=== PATIENT | female | born 1985 | race Caucasian/White ===

== ENCOUNTER 2020-12-29 23:47 | Inpatient (IN) | payer MEDICAID ==
[~2020-12-29] VITALS: Ht 157.5 cm; Wt 72.6 kg
[2020-12-30 01:18] LABS: Mean Corpuscular Hgb Conc. 32.5 g/dL (32.0-36.0); Nucleated Red Blood Cells % 0.1 %
[2020-12-30 01:20] LABS: Basophils # (auto) 0.1 10 ^3/uL (0-0.2); Basophils % (auto) 0.6 % (0.0-2.0); Eosinophils # (auto) 0.3 10 ^3/uL (0-0.8); Eosinophils % (auto) 2.6 % (0.0-7.0); Hematocrit 42.8 % (36.0-46.0); Hemoglobin 13.9 g/dL (12.2-16.2); Lymphocytes # (auto) 3.2 10 ^3/uL (0.4-5.4); Lymphocytes % (auto) 23.3 % (10.0-50.0); Mean Corpuscular Hemoglobin 26.7 pg (28.0-32.0); Mean Corpuscular Volume 82.2 fL (80.0-100.0); Monocytes # (auto) 1.3 10 ^3/uL (0-1.3); Monocytes % (auto) 9.4 % (0.0-12.0); Neutrophils # (auto) 8.7 10 ^3/uL (1.6-8.6); Neutrophils % (auto) 64.1 % (37.0-80.0); Platelet Count (auto) 277 10^3/uL (140-450); Red Blood Cells 5.21 10^6/uL (4.0-5.20); Red Cell Distribution Width 15.2 % (11.8-14.3); White Blood Cell 13.6 10^3/uL (4.4-10.8)
[2020-12-30] MEDS ORDERED: FUROSEMIDE 40 MG/4 ML VIAL IV ONE (01:30)
[2020-12-30 01:34] LABS: Albumin 3.5 g/dL (3.4-5.0); Calcium 8.5 mg/dL (8.5-10.1); Magnesium 2.3 mg/dL (1.6-2.6); Potassium 3.8 mmol/L (3.5-5.1)
[2020-12-30 01:40] LABS: Bilirubin, Total 0.7 mg/dL (0.2-1.0); Total Protein 6.6 g/dL (6.4-8.2)
[2020-12-30] MEDS ORDERED: cloNIDine HCL 0.1 MG TAB PO ONE (02:00)
[2020-12-30] MEDS ORDERED: ASPirin 325 MG TAB PO ONE (02:00)
[2020-12-30] MEDS ORDERED: ENOXAPARIN SOD 100 MG/1 ML SYRINGE SC ONE (02:15)
[2020-12-30 02:25] LABS: INR 1.13 (0.9-1.15)
[2020-12-30] MEDS ORDERED: FUROSEMIDE 20 MG TAB PO ONE (03:00)
[2020-12-30] MEDS ORDERED: MORPHINE SULFATE 4 MG/ML SYR/VIAL IV PRN (03:00)
[2020-12-30] MEDS ORDERED: ONDANSETRON HCL 4 MG/2 ML VIAL IV PRN (03:00)
[2020-12-30] MEDS ORDERED: hydrALAZINE HCL 25 MG TAB PO PRN (03:00)
[2020-12-30] MEDS ORDERED: NITROGLYCERIN 0.4 MG SL TAB SL PRN (03:00)
[2020-12-30] MEDS ORDERED: DOCUSATE SOD 100 MG CAP PO PRN (03:00)
[2020-12-30] MEDS ORDERED: MORPHINE SULF INJ 2 MG/ML SYRINGE 1ML IV PRN (03:00)
[2020-12-30] MEDS ORDERED: ACETAMINOPHEN 325 MG TAB PO PRN (03:00)
[2020-12-30] MEDS ORDERED: HYDROcodone-ACET 5/325MG TAB PO PRN (03:00)
[2020-12-30 03:35] LABS: Urine Bacteria FEW /hpf (None Seen); Urine Blood 1+ /uL (Negative); Urine Mucus FEW (None Seen); Urine Specific Gravity 1.024 (1.001-1.035); Urine WBC 7 /hpf (0 - 5)
[2020-12-30] MEDS ORDERED: SODIUM CHLOR 0.9% PF (SALINE LOCK) 10ML VIAL/SYR IV SCH (06:00)
[2020-12-30 08:38] LABS: Basophils # (auto) 0.1 10 ^3/uL (0-0.2); Eosinophils # (auto) 0.4 10 ^3/uL (0-0.8); Eosinophils % (auto) 2.9 % (0.0-7.0); Hematocrit 42.7 % (36.0-46.0); Lymphocytes # (auto) 3.1 10 ^3/uL (0.4-5.4); Lymphocytes % (auto) 24.7 % (10.0-50.0); Mean Corpuscular Hemoglobin 27.2 pg (28.0-32.0); Mean Corpuscular Hgb Conc. 32.9 g/dL (32.0-36.0); Mean Corpuscular Volume 82.8 fL (80.0-100.0); Monocytes % (auto) 8.4 % (0.0-12.0); Neutrophils # (auto) 7.8 10 ^3/uL (1.6-8.6); Nucleated Red Blood Cells % 0.2 %; Platelet Count (auto) 256 10^3/uL (140-450); Red Blood Cells 5.16 10^6/uL (4.0-5.20); Red Cell Distribution Width 15.4 % (11.8-14.3); White Blood Cell 12.4 10^3/uL (4.4-10.8)
[2020-12-30 09:00] LABS: Albumin 3.3 g/dL (3.4-5.0); Calcium 8.2 mg/dL (8.5-10.1); Potassium 3.9 mmol/L (3.5-5.1)
[2020-12-30 09:02] LABS: BUN/Creatinine Ratio 19.3; Bilirubin, Total 0.8 mg/dL (0.2-1.0); Total Protein 6.8 g/dL (6.4-8.2)
[2020-12-30 09:08] LABS: Cholesterol 160 mg/dL (< 200)
[2020-12-30 09:12] LABS: HDL Cholesterol 26 mg/dL (40-59); LDL Cholesterol 116 mg/dL (< 100); Triglycerides 188 mg/dL (< 150)
[2020-12-30] MEDS ORDERED: MULTIPLE VITAMIN TAB PO SCH (10:00)
[2020-12-30] MEDS ORDERED: FAMOTIDINE 20 MG TAB PO SCH (10:00)
[2020-12-30] MEDS ORDERED: FUROSEMIDE 20 MG TAB PO SCH (10:00)
[2020-12-30] MEDS ORDERED: ZINC SULFATE 220mg CAP or TAB PO SCH (10:00)
[2020-12-30] MEDS ORDERED: amLODIPine BESYLATE 5 MG TAB PO SCH (10:00)
[2020-12-30] MEDS ORDERED: ASPirin 81 mg TAB PO SCH (10:00)
[2020-12-30] MEDS ORDERED: ENOXAPARIN SOD 40 MG/0.4 ML SYRINGE SC SCH (10:00)
[2020-12-30] MEDS ORDERED: ASCORBIC ACID 500 MG TAB PO SCH (10:00)
[2020-12-30 10:17] VITALS: BP 144/107
[2020-12-30] MEDS ORDERED: ATORVASTATIN 20 MG TAB PO SCH (22:00)
== END 2020-12-30 10:08 | disposition left against medical advice (07) | DRG 190 ==
LOC: ER 23:50 → TELE 23:51
PROVIDERS: ADMIT Nurse Practitioner Family; ATTEND Internal Medicine
DX: I21.4 Non-ST elevation (NSTEMI) myocardial infarction (principal); R10.13 Epigastric pain; F11.90 Opioid use, unspecified, uncomplicated; F12.90 Cannabis use, unspecified, uncomplicated; F14.90 Cocaine use, unspecified, uncomplicated; F17.210 Nicotine dependence, cigarettes, uncomplicated; I11.0 Hypertensive heart disease with heart failure; I50.9 Heart failure, unspecified; J45.909 Unspecified asthma, uncomplicated; K59.00 Constipation, unspecified; Z91.14 Patient's other noncompliance with medication regimen; Z20.822 Contact with and (suspected) exposure to COVID-19; Z53.29 Procedure and treatment not carried out because of patient's decision for other reasons
CPT/HCPCS: 36415; 71045; 80053; 80061; 81001; 83605; 83690; 83735; 83880; 84484; 85025; 85610; 87426; 93005; 93306; 96372; 96374; G0378; J2405

== ENCOUNTER 2020-12-30 12:06 | Emergency (ER) | payer MEDICAID ==
[~2020-12-30] VITALS: Ht 157.5 cm; Wt 72.6 kg
[2020-12-30 12:10] VITALS: BP 146/109
[2020-12-30 14:18] LABS: Albumin 3.3 g/dL (3.4-5.0); Calcium 8.2 mg/dL (8.5-10.1); Magnesium 2.3 mg/dL (1.6-2.6); Potassium 4.4 mmol/L (3.5-5.1)
[2020-12-30 14:22] LABS: Bilirubin, Total 0.8 mg/dL (0.2-1.0); Total Protein 6.9 g/dL (6.4-8.2)
[2020-12-30 14:24] LABS: BUN/Creatinine Ratio 20.2
[2020-12-30 14:41] LABS: Thyroid Stimulating Hormone 3.26 uIU/mL (0.358-3.74)
[2020-12-30] MEDS ORDERED: ASPirin-EC 81 mg tab PO ONE (15:45)
== END 2020-12-30 18:27 | disposition home or self-care (01) ==
LOC: ER 12:06
DX: I21.A1 Myocardial infarction type 2 (principal); I21.4 Non-ST elevation (NSTEMI) myocardial infarction; I11.0 Hypertensive heart disease with heart failure; I50.43 Acute on chronic combined systolic (congestive) and diastolic (congestive) heart failure; J45.909 Unspecified asthma, uncomplicated; F17.210 Nicotine dependence, cigarettes, uncomplicated; F12.10 Cannabis abuse, uncomplicated; F15.10 Other stimulant abuse, uncomplicated; F11.10 Opioid abuse, uncomplicated; F14.10 Cocaine abuse, uncomplicated
CPT/HCPCS: 36415; 80053; 83735; 84443; 84484; 84702; 93005

== ENCOUNTER 2021-12-09 03:34 | Emergency (ER) | payer MEDICAID ==
[~2021-12-09] VITALS: Ht 167.6 cm; Wt 72.6 kg
[2021-12-09 03:49] VITALS: BP 152/115
== END 2021-12-09 06:28 | disposition left against medical advice (07) ==
LOC: EDBD 03:34 → ER 03:34
DX: R10.84 Generalized abdominal pain (principal); R11.2 Nausea with vomiting, unspecified; Z53.21 Procedure and treatment not carried out due to patient leaving prior to being seen by health care provider

== ENCOUNTER 2024-11-10 01:56 | Inpatient (IN) | payer MEDICAID ==
[~2024-11-10] VITALS: Ht 160 cm; Wt 89.9 kg
--- NOTE | 2024-11-10 02:37 | ED.PDOC ---
History of Present Illness HPI Comments 39-year-old female presents with a chief complaint of bilateral flank pain. Patient states that she has been off her Lasix because she "ran out 6 months ago". Patient is a poor historian. Patient denies seeing a regular doctor. Patient reports that the "swelling is causing my sides to hurt". Per [facility] medical record patient uses methamphetamines, cocaine, heroin, and marijuana. No reports of CHF in past medical chart. No other symptoms or modifying factors present at this time. Time Seen by MD: 02:25 Primary Care Provider: DR RFEEMAN Reviewed Notes: Medications, Allergies Allergies: Coded Allergies: NO KNOWN ALLERGIES (Unverified , 12/30/20) Information Source: Patient Mode of Arrival: Wheelchair Severity: Moderate Timing: Days Duration: Since onset Prehospital treatment: None Past Medical History PAST MEDICAL HISTORY: Asthma, HTN Surgical History: Denies all surgeries BATCHMAKER History: No Pertinent BATCHMAKER History Family History Family History: Unknown Social History Smoker: Cigarettes Alcohol: Occasionally Drugs: Cocaine, Heroin, Marijuana, Methamphetamine Constitutional: denies: chills, diaphoresis, fatigue, fever, malaise, sweats, weakness, others EENTM: denies: blurred vision, double vision, ear bleeding, ear discharge, ear drainage, ear pain, ear ringing, eye pain, eye redness, hearing loss, mouth pain, mouth swelling, nasal discharge, nose bleeding, nose congestion, nose pain, photophobia, tearing, throat pain, throat swelling, voice changes, others Respiratory: denies: cough, hemoptysis, orthopnea, SOB at rest, shortness of breath, SOB with excertion, stridor, wheezing, others Cardiovascular: denies: chest pain, dizzy spells, diaphoresis, Dyspnea on exertion, edema, irregular heart beat, left arm pain, lightheadedness, palpitations, PND, syncope, others Gastrointestinal: denies: abdomen distended, abdominal pain, blood streaked bowels, constipated, diarrhea, dysphagia, difficulty swallowing, hematemesis, melena, nausea, poor appetite, poor fluid intake, rectal bleeding, rectal pain, vomiting, others Genitourinary: reports: flank pain; denies: abnormal vagina bleeding, burning, dyspareunia, dysuria, frequency, hematuria, incontinence, pain, , vagina discharge, urgency, others Neurological: denies: dizziness, fainting, headache, left sided numbness, left sided weakness, numbness, paresthesia, pre-existing deficit, right sided numbness, right sided weakness, seizure, speech problems, tingling, tremors, weakness, others Musculoskeletal: denies: back pain, gout, joint pain, joint swelling, muscle pain, muscle stiffness, neck pain, others Integumetry: denies: bruises, change in color, change in hair/nails, dryness, laceration, lesions, lumps, rash, wounds, others Allergic/Immunocompromised: denies: Difficulty Healing, Frequent Infections, Hives, Itching, others Hematologic/Lymphatic: denies: anemia, blood clots, easy bleeding, easy bruising, swollen glands, others Endocrine: denies: excessive hunger, excessive sweating, excessive thirst, excessive urination, flushing, intolerance to cold, intolerance to heat, unexplained weight gain, unexplained weight loss, others Psychiatric: denies: anxiety, bipolar disorder, depression, hopeless, panic disorder, schizophrenia, sleepless, suicidal, others All Other Systems: Reviewed and Negative Physical Exam General Appearance: No Apparent Distress, Normal HEENT: Normal ENT Inspection, Pharynx Normal, TMs Normal Neck: Full Range of Motion, Non-Tender, Normal, Normal Inspection Respiratory: Chest Non-Tender, Lungs Clear, No Accessory Muscle Use, No Respiratory Distress, Normal Breath Sounds Cardiovascular: No Edema, No JVD, No Murmur, No Gallop, Normal Peripheral Pulses, Regular Rate/Rhythm Breast Exam: Deferred Gastrointestinal: No Organomegaly, Non Tender, No Pulsatile Mass, Normal Bowel Sounds, Soft Genitalia: Deferred Pelvic: Deferred Rectal: Deferred Extremities: No calf tenderness, Normal capillary refill, Normal inspection, Normal range of motion, Non-tender, Swelling (BILATERAL LOWER EXTREMITIES) Musculoskeletal : Apperance: Normal Neurologic: Alert, tinner automatic II-XII nml as Tested, No Motor Deficits, Normal Affect, Normal Mood, No Sensory Deficits Cerebellar Function: Normal Reflexes: Normal Skin: Dry, Normal Color, Warm Lymphatic: No Adenopathy Was a procedure done? Was a procedure done?: No Differential Dx Considerations may include: chf, acs, pneumonia, X-Ray, Labs, Meds, VS Vital Signs Date Time Temp Pulse Resp B/P (MAP) Pulse Ox O2 Delivery O2 Flow Rate FiO2 11/10/24 02:28 99.1 106 20 172/117 (135) 97 Lab Test 11/10/24 03:08 Range/Units White Blood Count 14.9 H 4.4-10.8 10^3/uL Red Blood Count 5.35 H 4.0-5.20 10^6/uL Hemoglobin 14.9 12.2-16.2 g/dL Hematocrit 45.9 36.0-46.0 % Mean Corpuscular Volume 85.9 80.0-100.0 fL Mean Corpuscular Hemoglobin 27.8 L 28.0-32.0 pg Mean Corpuscular Hemoglobin Concent 32.4 32.0-36.0 g/dL Red Cell Distribution Width 16.6 H 11.8-14.3 % Platelet Count 241 140-450 10^3/uL Mean Platelet Volume 10.1 6.9-10.8 fL Neutrophils (%) (Auto) 71.4 37.0-80.0 % Lymphocytes (%) (Auto) 18.0 10.0-50.0 % Monocytes (%) (Auto) 7.3 0.0-12.0 % Eosinophils (%) (Auto) 2.3 0.0-7.0 % Basophils (%) (Auto) 1.0 0.0-2.0 % Neutrophils # (Auto) 10.6 H 1.6-8.6 10 ^3/uL Lymphocytes # (Auto) 2.7 0.4-5.4 10 ^3/uL Monocytes # (Auto) 1.1 0-1.3 10 ^3/uL Eosinophils # (Auto) 0.3 0-0.8 10 ^3/uL Basophils # (Auto) 0.1 0-0.2 10 ^3/uL Nucleated Red Blood Cells 0.3 % Sodium Level 137 136-145 mmol/L Potassium Level 4.1 3.5-5.1 mmol/L Chloride Level 102 98-107 mmol/L Carbon Dioxide Level 25 20-31 mmol/L Anion Gap 10 5-15 Blood Urea Nitrogen 13 9-23 mg/dL Creatinine 0.82 0.550-1.02 mg/dL Glomerular Filtration Rate Calc 93 >90 mL/min BUN/Creatinine Ratio 15.9 10.0-20.0 Serum Glucose 182 H 74-106 mg/dL Calcium Level 10.0 8.7-10.4 mg/dL Troponin I High Sensitivity 84 *H </=34 ng/L B-Type Natriuretic Peptide 809.53 0-100 pg/mL Time of 1ST Reevaluation: 02:55 Reevaluation 1ST: Unchanged Patient Education/Counseling: Diagnosis, Treatment, Prognosis Family Education/Counseling: No Family Present Departure 1 Departure Time of Disposition: 04:02 (Patient likely with acute on chronic chf exacerbation in the setting of medication noncompliance. ) Impression: Primary Impression: Systolic and diastolic CHF, acute on chronic Additional Impressions: Noncompliance with medication regimen Swelling of lower extremity Disposition: ADMITTED INPATIENT Admit to: Med Surg Condition: Serious Critical Care Note Critical Care Time?: Yes Critical care comment: Acute shortness of breath Authorized and Performed by: Hayden Johnson MD Total critical care time: Approximately 33 minutes Due to a high probability of clinically significant, life threatening deterioration, the patient required my highest level of preparedness to intervene emergently and I personally spent this critical care time directly and personally managing the patient. This critical care time included obtaining a history; examining the patient; pulse oximetry; ordering and review of studies; arranging urgent treatment with development of a management plan; evaluation of patient's response to treatment; frequent reassessment; and, discussions with other providers. This critical care time was performed to assess and manage the high probability of imminent, life-threatening deterioration that could result in multi-organ failure. It was exclusive of separately billable procedures and treating other patients and teaching time. Please see my other sections and the rest of the note for further information on patient assessment and treatment. Stability Stability form required: No I personally scribed for HAYDEN JOHNSON MD ([email or web address]) on 11/10/24 at 02:37. Electronically submitted by Dustin Moulton ([email or web address]). HAYDEN JOHNSON MD Nov 10, 2024 02:37
[2024-11-10 03:21] LABS: Basophils # (auto) 0.1 10 ^3/uL (0-0.2); Eosinophils # (auto) 0.3 10 ^3/uL (0-0.8); Eosinophils % (auto) 2.3 % (0.0-7.0); Hematocrit 45.9 % (36.0-46.0); Hemoglobin 14.9 g/dL (12.2-16.2); Lymphocytes # (auto) 2.7 10 ^3/uL (0.4-5.4); Mean Corpuscular Hemoglobin 27.8 pg (28.0-32.0); Mean Corpuscular Hgb Conc. 32.4 g/dL (32.0-36.0); Mean Corpuscular Volume 85.9 fL (80.0-100.0); Monocytes # (auto) 1.1 10 ^3/uL (0-1.3); Monocytes % (auto) 7.3 % (0.0-12.0); Neutrophils # (auto) 10.6 10 ^3/uL (1.6-8.6); Neutrophils % (auto) 71.4 % (37.0-80.0); Nucleated Red Blood Cells % 0.3 %; Platelet Count (auto) 241 10^3/uL (140-450); Red Blood Cells 5.35 10^6/uL (4.0-5.20); Red Cell Distribution Width 16.6 % (11.8-14.3); White Blood Cell 14.9 10^3/uL (4.4-10.8)
[2024-11-10 03:26] LABS: Chloride 102 mmol/L (98-107); Potassium 4.1 mmol/L (3.5-5.1); Sodium 137 mmol/L (136-145)
[2024-11-10 03:27] LABS: Anion Gap 10 (5-15); Carbon Dioxide 25 mmol/L (20-31)
--- NOTE | 2024-11-10 03:30 | DVH ---
Examination: CXR2 Clinical Indication: SOB Comparison: None. Technique: Frontal and lateral radiograph of the chest was obtained. Findings: Lungs are clear and well expanded, with no pulmonary infiltrate or pleural effusion. There is no pneumothorax. Moderate cardiomegaly. No acute osseous abnormality is seen. Impression: 1. Moderate cardiomegaly. 2. No evidence of acute infiltrates or effusion. 3. No evidence of pneumothorax. Electronically Signed 11/10/2024 03:28 Chelsi Britt
[2024-11-10 03:32] LABS: BUN/Creatinine Ratio 15.9 (10.0-20.0); Blood Urea Nitrogen 13 mg/dL (9-23)
[2024-11-10 03:34] LABS: Glucose 182 mg/dL (74-106)
[2024-11-10] MEDS ORDERED: ONDANSETRON HCL 4 MG/2 ML VIAL IV PRN (04:45)
[2024-11-10] MEDS ORDERED: MORPHINE SULFATE INJ 2 MG/ml SYRG IV PRN (04:45)
[2024-11-10] MEDS ORDERED: NITROGLYCERIN 0.4 MG SL TAB SL PRN (04:45)
[2024-11-10] MEDS ORDERED: TEMAZEPAM 15 MG CAP PO PRN (04:45)
[2024-11-10 05:57] VITALS: PULSE 106; RESP 18; O2SAT 99
[2024-11-10] MEDS: FUROSEMIDE 40 MG/4 ML VIAL IV ONE ×2 (06:10→17:15)
[2024-11-10] MEDS: FUROSEMIDE 20 MG/2 ML VIAL IV SCH (06:11)
[2024-11-10] MEDS: hydrALAZINE HCL 20 MG/ML VL IV PRN (06:11)
[2024-11-10] MEDS: ASPirin 81 mg TAB PO SCH (09:28)
[2024-11-10] MEDS: LISINOPRIL 5 MG TAB PO SCH (09:28)
[2024-11-10] MEDS: CARVEDILOL 3.125 MG TAB PO SCH ×2 (09:28→22:17)
[2024-11-10 09:33] VITALS: PULSE 102; RESP 18; O2SAT 95
[2024-11-10 14:40] VITALS: PULSE 82; RESP 16; O2SAT 90
--- NOTE | 2024-11-10 14:48 | DVHPN2 ---
Assessment/Plan Assessment/Plan Progress note Subjective 57-year-old female admitted for acute on chronic systolic heart failure. Patient reported initially diagnosed 4 years ago, noncompliant with medication, current tobacco, meth user, daily drinking last drink [employer]. Objective Physical exam Alert, oriented x3 Speaking full sentences lying flat on stretcher Obese PERRLA JVD midneck Clear breath sounds bilaterally S1-S2 regular rate and rhythm no murmur Abdomen soft nontender, no organomegaly Moving all four extremities Ankle edema b/l Lab WBC 15 BNP 809 Trop 84-76 Imaging CXR clear, cardiomegaly Point of care ultrasound done today and interpreted by me Cardiac: No pericardial effusion, decreased systolic function, MR, TR, IVC less than 2 cm with less than 50% excursion on inspiration Lung: No B-lines, no pleural effusion Assessment and plan Chronic hypoxic respiratory failure Chronic systolic heart failure Heart failure with reduced ejection fraction Mitral regurgitation 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 Cannot rule out ICM Possible COPD Medication non compliance alcohol use tobacco use methamphetamine use Type 2 [place] demand ischemia Obesity Not in exacerbation, will do PO lasix Maintain O2 >88% Initiate GDMT Reinforce abstinence get EKG NRT Once optimize patient should be evaluated for ICM likely outpatient CIWA protocol PRN ativan social service consult for resources Replete electrolytes Diet heart healthy DVT prophylaxis lovenox Plan discussed with: Patient Date of Service: Nov 10, 2024 Billing Provider: HALLIE GEORGE MD Common Visit Codes: [id number] INP/OBS CARE(HIGH), PROCEDURE ONLY (Cardiac point of care ultrasound 25056) HALLIE GEORGE MD Nov 10, 2024 14:48
[2024-11-10] MEDS ORDERED: hydrALAZINE HCL 20 MG/ML VL IV PRN (16:15)
--- NOTE | 2024-11-10 16:21 | DVHINCON2 ---
Date Seen: Nov 10, 2024 Referring Physician BELLO Wilson Reason for Consultation CHF History of Present Illness This is a 39-year-old female who presented to the emergency room with a chief complaint of bilateral lower extremity edema x1 week. The patient complains of bilateral lower extremity edema associated with increased abdominal girth, PND, orthopnea, and THORNE. Reports she has a known cardiomyopathy but somehow stopped taking her home medications approximately six months ago. Denies following up in the outpatient setting with a cataloging assistant. Denies undergoing invasive cardiac procedures in the past. She underwent a 12 lead electrocardiogram revealing a sinus rhythm suggestive of left atrial enlargement, left ventricular hypertrophy, and QTC> 500 ms. Significant medical history includes dilated cardiomyopathy, hypertension, [id number] diabetes mellitus, use of methamphetamines/cannabinoids/tobacco, daily alcohol intake including half pint of vodka on daily basis, and obesity. Past Medical History Past medical history reviewed. No other significant than mentioned above. Past Surgical History Past surgical history reviewed. No other significant than mentioned above. Family History Family history reviewed. Mother with CHF. Social History See HPI. Allergies: Coded Allergies: NO KNOWN ALLERGIES (Unverified , 12/30/20) Home Meds Denies any current home medications. Current Medications Current Medications Medications (Trade) Dose Ordered Sig/Kellen Route PRN Reason Start Time Stop Time Status Last Admin Carvedilol (Coreg Tablet) 6.25 mg Q12HR PO 11/10/24 10:00 11/10/24 14:51 DC 11/10/24 09:28 Lisinopril (Zestril Tablet) 10 mg DAILY PO 11/10/24 10:00 11/10/24 14:51 DC 11/10/24 09:28 Hydralazine HCl (Apresoline Injection) 10 mg Q6HP PRN IV SBP>150 11/10/24 04:45 11/10/24 13:01 DC 11/10/24 06:11 Aspirin 162 mg DAILY PO 11/10/24 10:00 11/10/24 14:51 DC 11/10/24 09:28 Atorvastatin Calcium (Lipitor) 10 mg HS PO 11/10/24 22:00 11/10/24 14:51 DC Furosemide (Lasix Injection) 20 mg BIDD IV 11/10/24 06:00 11/10/24 14:51 DC 11/10/24 06:11 Temazepam (Restoril) 15 mg QHSP PRN PO FOR INSOMNIA 11/10/24 04:45 11/10/24 13:01 DC Ondansetron HCl (Zofran) 4 mg Q4HP PRN IV NAUSEA / VOMITING 11/10/24 04:45 11/10/24 13:01 DC Acetaminophen (Tylenol Tablet) 650 mg Q6HP PRN PO PAIN SCALE 1-3 OR TEMP>100.4 11/10/24 04:45 Nitroglycerin (Ntrostat Sublingual) 0.4 mg Q5MINP PRN SL FOR CHEST PAIN 11/10/24 04:45 11/10/24 13:01 DC Morphine Sulfate 2 mg Q30M PRN IV FOR CHEST PAIN 11/10/24 04:45 11/10/24 13:01 DC Atorvastatin Calcium (Lipitor) 80 mg HS PO 11/10/24 22:00 Carvedilol (Coreg Tablet) 12.5 mg Q12HR PO 11/10/24 22:00 Furosemide (Lasix Tablet) 40 mg DAILY PO 11/11/24 10:00 Ibuprofen (Motrin Tablet) 400 mg Q8HP PRN PO SEVERE PAIN (7-10 PAIN SCALE) 11/10/24 15:00 Valsartan (Diovan) 80 mg DAILY PO 11/11/24 10:00 Review of Systems Constitutional: No symptom reported Ears, Nose, & Throat: No symptom reported Eyes: No symptom reported Neurological: No symptoms reported Pulmonary/Respiratory: SOB, PND, orthopnea Cardiovascular: BLE edema Gastrointestinal: No symptom reported Genitourinary: No symptom reported Musculoskeletal: No symptom reported Skin: No symptom reported Psychiatric: No symptom reported Endocrine: No symptom reported Hemotologic/Lymphatic: No symptom reported Vital Signs Vital Signs Date Time Temp Pulse Resp B/P (MAP) Pulse Ox O2 Delivery O2 Flow Rate FiO2 11/10/24 14:40 82 16 90 Room Air* 0 21 11/10/24 14:40 98.5 109/68 (82) 98.5 Physical Exam General Appearance: Cooperative. Somnolent. Obese. Mild acute respiratory distress Head Exam: Normal inspection Neck Exam: Normal inspection. Non-tender. Normal alignment Pulmonary/Respiratory: Chest non-tender. cCrackles to bilateral breath sounds Cardiovascular/Chest: Regular rate and rhythm. S1, S2. SR with LAE, LVH, QTC > 500 ms. No murmurs. No JVD. Peripheral Pulses: 2+ Radial (R). 2+ Radial (L). 2+ Pedal (R). 2+ Pedal (L) Abdominal Exam: Normal bowel sounds. Soft. Ankle Exam: Negative ankle edema Lower extremities: Negative lower extremity edema Neuro/Mental Status: A&O x4. Coherent Thoughts/Psych: Normal thought pattern. Appropriate mood and affect. Appearance: Mild acute respiratory distress Skin Exam: Normal inspection. Normal color. Warm. Dry Labs/Diagnostic Data Labs Test 11/10/24 06:14 11/10/24 03:08 Range/Units Troponin I High Sensitivity 76 *H </=34 ng/L White Blood Count 14.9 H 4.4-10.8 10^3/uL Red Blood Count 5.35 H 4.0-5.20 10^6/uL Hemoglobin 14.9 12.2-16.2 g/dL Hematocrit 45.9 36.0-46.0 % Mean Corpuscular Volume 85.9 80.0-100.0 fL Mean Corpuscular Hemoglobin 27.8 L 28.0-32.0 pg Mean Corpuscular Hemoglobin Concent 32.4 32.0-36.0 g/dL Red Cell Distribution Width 16.6 H 11.8-14.3 % Platelet Count 241 140-450 10^3/uL Mean Platelet Volume 10.1 6.9-10.8 fL Neutrophils (%) (Auto) 71.4 37.0-80.0 % Lymphocytes (%) (Auto) 18.0 10.0-50.0 % Monocytes (%) (Auto) 7.3 0.0-12.0 % Eosinophils (%) (Auto) 2.3 0.0-7.0 % Basophils (%) (Auto) 1.0 0.0-2.0 % Neutrophils # (Auto) 10.6 H 1.6-8.6 10 ^3/uL Lymphocytes # (Auto) 2.7 0.4-5.4 10 ^3/uL Monocytes # (Auto) 1.1 0-1.3 10 ^3/uL Eosinophils # (Auto) 0.3 0-0.8 10 ^3/uL Basophils # (Auto) 0.1 0-0.2 10 ^3/uL Nucleated Red Blood Cells 0.3 % Sodium Level 137 136-145 mmol/L Potassium Level 4.1 3.5-5.1 mmol/L Chloride Level 102 98-107 mmol/L Carbon Dioxide Level 25 20-31 mmol/L Anion Gap 10 5-15 Blood Urea Nitrogen 13 9-23 mg/dL Creatinine 0.82 0.550-1.02 mg/dL Glomerular Filtration Rate Calc 93 >90 mL/min BUN/Creatinine Ratio 15.9 10.0-20.0 Serum Glucose 182 H 74-106 mg/dL Calcium Level 10.0 8.7-10.4 mg/dL B-Type Natriuretic Peptide 809.53 0-100 pg/mL Assessment Acute on chronic decompensated HFrEF, NYHA Class III Dilated/drug-induced cardiomyopathy Acute hypoxic respiratory failure Hypertensive urgency NSTEMI type 2 secondary to above Polysubstance abuse with methamphetamines Alcohol dependence Tobacco use Medical noncompliance Obesity Plan/Recommendation We will continue the following plan/recommendations (Dr. Tavares): * Echocardiogram to evaluate cardiac function * GDMT for CHF, up-titrate as tolerated * Preload and afterload reduction * Strict I&Os. Daily weight. Fluid restrictions * UDS, Blood alcohol, CXR in a.m. Thank you for allowing us to participate in this patient's care. Please call if you have any questions or concerns. This medical document was created using an electronic medical record system with voice recognition software and computerized dictation system. Although this document has been carefully reviewed, there might still be some phonetic and typographical errors. Occasional wrong-word or ``sound-alike substitutions may have occurred due to the inherent limitations of voice recognition software. These areas are purely typographical due to imperfections of the software programs and do not reflect any compromise in the patient's medical care. Please read the chart carefully and recognize, using context, where these substitutions have occurred. Plan discussed with: Patient, Other Date of Service: Nov 10, 2024 Billing Provider: CHAITANYA TAVARES MD Cardiology Common Codes: [id number] INP/OBS CARE (High) EDMONDSVIANNEY REYES [facility] Nov 10, 2024 16:21
[2024-11-10 18:13] LABS: Urine Bacteria MOD /hpf (None Seen); Urine Blood Negative /uL (Negative); Urine Clarity Turbid (Clear); Urine Color Yellow (Yellow); Urine Mucus FEW (None Seen); Urine Protein, UAD 2+ (Negative); Urine Specific Gravity 1.018 (1.001-1.035); Urine Urobilinogen Normal (Negative); Urine WBC 2 /hpf (0 - 5); Urine pH 5.5 (5.0-9.0)
[2024-11-10 18:38] VITALS: BP 132/80; PULSE 89; PULSE 91; RESP 18; RESP 19; TEMP 98.4; O2SAT 94; O2SAT 95
[2024-11-10 18:39] LABS: Amphetamine Screen, Urine Pos (NEGATIVE); Barbiturate Scree,Urine Neg (NEGATIVE); Benzodiazephine Screen, Urine Neg (NEGATIVE); Cannabinoid Screen, Urine Neg (NEGATIVE); Cocaine Screen, Urine Neg (NEGATIVE); Opiate Scree,Urine Neg (NEGATIVE); Phencyclidine Screen, Urine Neg (NEGATIVE)
[2024-11-10 20:00] VITALS: PULSE 89; PULSE 93; RESP 19; O2SAT 94
[2024-11-10 21:00] VITALS: BP 132/80; PULSE 89; RESP 19; TEMP 98.4; O2SAT 94
--- NOTE | 2024-11-10 21:42 | DVHHP2 ---
History of Present Illness Reason for Visit: Shortness of breath History of Present Illness 39-year-old female presents for evaluation of shortness for breath. Patient with a history of congestive heart failure reports not taking her medications for the past six months. She recently started swelling up lower extremities her lower abdomen. Reports shortness for breath with some chest pressure. No cough or fever. Other acute complaints reported. Past Medical History Asthma, hypertension and congestive heart Past Surgical History Denies Family History Noncontributory Smoke: <1 pack per day ALCOHOL: occassional Drugs: Cocaine, Marijuana, Other (Methamphetamine) Review of Systems Review of Systems Review of systems are currently negative otherwise addressed in HPI. Allergies: Coded Allergies: NO KNOWN ALLERGIES (Unverified , 12/30/20) Medications Current Medications Medications Dose Ordered Sig/Kellen Route Start Time Stop Time Status Last Admin Dose Admin Acetaminophen 650 mg Q6HP PRN PO 11/10/24 04:45 Atorvastatin Calcium 80 mg HS PO 11/10/24 22:00 Carvedilol 12.5 mg Q12HR PO 11/10/24 22:00 Ibuprofen 400 mg Q8HP PRN PO 11/10/24 15:00 Valsartan 80 mg DAILY PO 11/11/24 10:00 Furosemide 40 mg BIDD IV 11/11/24 06:00 Spironolactone 25 mg DAILY PO 11/11/24 10:00 Empaglifozin 10 mg DAILY PO 11/11/24 10:00 Hydralazine HCl 10 mg Q6HP PRN IV 11/10/24 16:15 Exam Vital Signs Vital Signs Date Time Temp Pulse Resp B/P (MAP) Pulse Ox O2 Delivery O2 Flow Rate FiO2 11/10/24 18:38 91 18 95 Room Air* 0 21 11/10/24 17:15 124/78 11/10/24 14:40 98.5 98.5 Exam Gen: 39-year-old in mild distress Skin: Warm, dry, normal color and texture, no rash. HEENT: Normocephalic atraumatic, mucous membranes moist and pink. Neck: Cervical and supraclavicular nodes normal without enlargement, trachea is midline, thyroid gland is normal without masses. Pulmonary: Clear to auscultation and percussion bilaterally. Cardiac: Regular rate and rhythm. No murmur Abdomen: Soft, nontender, nondistended, bowel sounds present all 4 quadrants, no guarding, no rigidity, no organomegaly. Extremities: No cyanosis, clubbing, plus two bilateral pedal edema Neuro: Cranial nerves II through XII grossly intact, normal affect and speech, no focal motor deficits. Labs/Xrays ORDERING PHYSICIAN: HAYDEN HILL MD PROCEDURE(s): CXR2 - CHEST TWO VIEWS ROUTINE REASON: SOB ORDER NUMBER(s): [id number], ACCESSION NUMBER(s): [id number] Examination: CXR2 Clinical Indication: SOB Comparison: None. Technique: Frontal and lateral radiograph of the chest was obtained. Findings: Lungs are clear and well expanded, with no pulmonary infiltrate or pleural effusion. There is no pneumothorax. Moderate cardiomegaly. No acute osseous abnormality is seen. Impression: 1. Moderate cardiomegaly. 2. No evidence of acute infiltrates or effusion. 3. No evidence of pneumothorax. Electronically Signed 11/10/2024 03:28 Chelsi Britt Labs Test 11/10/24 17:42 11/10/24 06:14 11/10/24 03:08 Range/Units Urine Color Yellow Yellow Urine Clarity Turbid H Clear Urine pH 5.5 5.0-9.0 Urine Specific [place] 1.018 1.001-1.035 Urine Protein 2+ H Negative Urine Ketones Negative Negative Urine Blood Negative Negative /uL Urine Nitrite 2+ H Negative Urine Bilirubin Negative Negative Urine Urobilinogen Normal Negative mg/dL Urine Leukocyte Esterase Negative Negative /uL Urine RBC 3 0 - 4 /hpf Urine WBC 2 0 - 5 /hpf Urine Squamous Epithelial Cells Few <5 /hpf Urine Bacteria Mod H None Seen /hpf Urine Mucus Few None Seen Urine Glucose Normal Normal mg/dL Urine Opiates Screen Neg NEGATIVE Urine Fentanyl Screen Neg NEGATIVE Urine Barbiturates Screen Neg NEGATIVE Urine Phencyclidine Screen Neg NEGATIVE Urine Amphetamines Screen Pos NEGATIVE Urine Benzodiazepines Screen Neg NEGATIVE Urine Cocaine Screen Neg NEGATIVE Urine Cannabinoids Screen Neg NEGATIVE Troponin I High Sensitivity 76 *H </=34 ng/L White Blood Count 14.9 H 4.4-10.8 10^3/uL Red Blood Count 5.35 H 4.0-5.20 10^6/uL Hemoglobin 14.9 12.2-16.2 g/dL Hematocrit 45.9 36.0-46.0 % Mean Corpuscular Volume 85.9 80.0-100.0 fL Mean Corpuscular Hemoglobin 27.8 L 28.0-32.0 pg Mean Corpuscular Hemoglobin Concent 32.4 32.0-36.0 g/dL Red Cell Distribution Width 16.6 H 11.8-14.3 % Platelet Count 241 140-450 10^3/uL Mean Platelet Volume 10.1 6.9-10.8 fL Neutrophils (%) (Auto) 71.4 37.0-80.0 % Lymphocytes (%) (Auto) 18.0 10.0-50.0 % Monocytes (%) (Auto) 7.3 0.0-12.0 % Eosinophils (%) (Auto) 2.3 0.0-7.0 % Basophils (%) (Auto) 1.0 0.0-2.0 % Neutrophils # (Auto) 10.6 H 1.6-8.6 10 ^3/uL Lymphocytes # (Auto) 2.7 0.4-5.4 10 ^3/uL Monocytes # (Auto) 1.1 0-1.3 10 ^3/uL Eosinophils # (Auto) 0.3 0-0.8 10 ^3/uL Basophils # (Auto) 0.1 0-0.2 10 ^3/uL Nucleated Red Blood Cells 0.3 % Sodium Level 137 136-145 mmol/L Potassium Level 4.1 3.5-5.1 mmol/L Chloride Level 102 98-107 mmol/L Carbon Dioxide Level 25 20-31 mmol/L Anion Gap 10 5-15 Blood Urea Nitrogen 13 9-23 mg/dL Creatinine 0.82 0.550-1.02 mg/dL Glomerular Filtration Rate Calc 93 >90 mL/min BUN/Creatinine Ratio 15.9 10.0-20.0 Serum Glucose 182 H 74-106 mg/dL Calcium Level 10.0 8.7-10.4 mg/dL B-Type Natriuretic Peptide 809.53 0-100 pg/mL Plasma/Serum Blood Alcohol < 3.0 <10 mg/dL Assessment/Plan Assessment/Plan Assessment Acute on chronic congestive heart failure Possible drug-induced cardiomyopathy Hypertension compliant Plan Admit the patient to telemetry to the hospitalist Cardiology consultation Echocardiogram pending Resume home medications Continue treatment per orders. Plan discussed with: Patient My Orders Orders - HUYEN PERALES Procedure Category Date Status Time Admit ADMIT 11/10/24 Transmitted 04:33 Cardiac DIET 11/10/24 Transmitted Diet-2gna,Lofat,Lochol Breakfast Condition: Fair [facility] 11/10/24 In Process 04:33 Acetaminophen Tablet PHA 11/10/24 In Process (Tylenol Tablet) 04:45 Bedrest With Bathroom [facility] 11/10/24 In Process Privileg 04:33 Stat Ekg For Chest [facility] 11/10/24 In Process Pain 04:33 Notify Md Of Changes [facility] 11/10/24 In Process From Base 04:33 Pharmacist Intern For [facility] 11/10/24 In Process 24 Hours 04:33 Emergency Dysrhythmia [facility] 11/10/24 In Process Protocol 04:33 Rhythm Strips Once [facility] 11/10/24 In Process Every Shift 04:33 Oxygen By Nasal RT 11/10/24 Transmitted Cannula 04:33 Date of Service: Nov 10, 2024 Billing Provider: HUYEN PERALES Common Visit Codes: [id number] INP/OBS CARE (HIGH) HUYEN PERALES Nov 10, 2024 21:41
[2024-11-10] MEDS ORDERED: ATORVASTATIN 20 MG TAB PO SCH (22:00)
[2024-11-10] MEDS: ATORVASTATIN 20 MG TAB PO SCH (22:16)
--- NOTE | 2024-11-10 22:46 | DVHSR ---
APPROVED REPORT EXAM: Two-dimensional and M-mode echocardiogram with Doppler and color Doppler. Blood Pressure: 177/115 mmHg INDICATION ef RISK FACTORS Obesity: Height: 5'3, Weight: 200 DIMENSIONS LVDd5.7 (3.8-5.7cm)LA (2D)4.0 (1.9-4.0cm)Aortic Root2.9 (2.0-3.7cm) LVDs5.0 (2.5-4.0cm)LA (MM) (1.9-4.0cm)Aortic Cusp Exc1.7 (1.5-2.0cm) EF (%) 30.0 (55-70%)Rt. Atrium4.3 (1.9-4.0cm)Asc. Aorta3.4 cm IVSd0.9 (0.7-1.1cm)RV (D) (1.8-2.4cm) PWd1.4 (0.7-1.1cm) Mitral Valve MitralMitral Stenosis E wave0.93m/sMV Mean GR.mmHg A wave0.46m/sMV Peak GR.109mmHg E/A ratio2.02D MVAcm2 DECEL [id number] 1/2 Timems Aortic Valve Aortic ValveAortic Stenosis V11.08m/Tobias Mean GR.5mmHg V21.37m/Tobias Peak GR.8mmHg LVOT Diameter2.0 (1.8-2.4cm)Doppler AVA2.48cm2 Pulmonic Valve V21.06m/s Tricuspid Valve TR Velocity2.50m/s [id number] Conclusion Severely dilated left ventricle. Severely reduced left ventricular systolic function estimated eject ion fraction of 30%. There is global wall akinesia. There is a grade 2 diastolic dysfunction. Normal right ventricular size and dimension. Moderately reduced right ventricular systolic function. slightly ncreased roght ventricular systolic pressure 30 mmhg. Moderately dilated right and left atria. Normal aortic valve structure and function. Moderately severe mitral valve regurgitation. There is mild tricuspid valve regurgitation. The pulmonary valve is grossly normal. No pericardial effusion.
[2024-11-11 05:35] VITALS: BP 113/76; PULSE 8; RESP 19; TEMP 98.3; O2SAT 96
[2024-11-11] MEDS: FUROSEMIDE 40 MG/4 ML VIAL IV SCH (05:45)
[2024-11-11] MEDS: IBUPROFEN 400 MG TAB PO PRN (05:46)
[2024-11-11 06:01] LABS: Basophils # (auto) 0.1 10 ^3/uL (0-0.2); Basophils % (auto) 0.8 % (0.0-2.0); Eosinophils # (auto) 0.6 10 ^3/uL (0-0.8); Eosinophils % (auto) 4.6 % (0.0-7.0); Hematocrit 43.5 % (36.0-46.0); Hemoglobin 14.4 g/dL (12.2-16.2); Lymphocytes # (auto) 2.2 10 ^3/uL (0.4-5.4); Lymphocytes % (auto) 16.2 % (10.0-50.0); Mean Corpuscular Hgb Conc. 33.1 g/dL (32.0-36.0); Mean Corpuscular Volume 84.3 fL (80.0-100.0); Monocytes % (auto) 7.4 % (0.0-12.0); Neutrophils # (auto) 9.5 10 ^3/uL (1.6-8.6); Nucleated Red Blood Cells % 0.2 %; Platelet Count (auto) 222 10^3/uL (140-450); Red Blood Cells 5.16 10^6/uL (4.0-5.20); Red Cell Distribution Width 16.3 % (11.8-14.3); White Blood Cell 13.5 10^3/uL (4.4-10.8)
[2024-11-11 06:07] LABS: Anion Gap 6 (5-15); Carbon Dioxide 25 mmol/L (20-31); Chloride 103 mmol/L (98-107); Potassium 3.7 mmol/L (3.5-5.1)
[2024-11-11 06:08] LABS: Calcium 9.3 mg/dL (8.7-10.4)
[2024-11-11 06:13] LABS: BUN/Creatinine Ratio 17.2 (10.0-20.0); Blood Urea Nitrogen 15 mg/dL (9-23); Magnesium 1.9 mg/dL (1.6-2.6)
[2024-11-11 06:14] LABS: Cholesterol 172 mg/dL (< 200)
[2024-11-11 06:15] LABS: Phosphorus 3.1 mg/dL (2.4-5.1)
[2024-11-11 06:17] LABS: Glucose 186 mg/dL (74-106); HDL Cholesterol 20 mg/dL (40-59); LDL Cholesterol 138 mg/dL (< 100); Sodium 134 mmol/L (136-145); Triglycerides 181 mg/dL (< 150)
--- NOTE | 2024-11-11 06:42 | ECG ---
[facility] Test Date: 2024-11-10 Test Time: 16:31:11 Pat Name: YAMILA MORROW Department: er Room: 0289T B Gender: F K 9 Handler/ Deputy: eliseo : 1985 Requested By: HAYDEN HILL Order Number: [id number] Reading MD: Nehemiah Pandey Measurements Intervals Howard Rate: 89 P: 23 OH: 173 QRS: 17 QRSD: 92 T: 56 QT: 434 QTc: 529 Interpretive Statements Sinus rhythm Probable left ventricular hypertrophy Prolonged QT interval Electronically Signed On 11-13-2024 12:39:40 PST by Nehemiah Pandey Please click the below link to view image of tracing.
[2024-11-11 08:00] VITALS: PULSE 85
--- NOTE | 2024-11-11 08:35 | DVHPN2 ---
Assessment/Plan Assessment/Plan Progress note Subjective 57-year-old female admitted for acute on chronic systolic heart failure. 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 Cannot rule out ICM Possible COPD Medication non compliance alcohol use tobacco use methamphetamine use Type 2 MT demand ischemia Obesity diabetes melitus dyslipidemia metabolic syndrome c/w lasix, diurese to net -500 Maintain O2 >88% titrate GDMT Reinforce abstinence NRT Once optimize patient should be evaluated for ICD likely outpatient CIWA protocol PRN ativan social service consult for resources strict I O daily weights Replete electrolytes Diet heart healthy DVT prophylaxis lovenox Plan discussed with: Patient My Orders Orders - HALLIE GEORGE MD Procedure Category Date Status Time Atorvastatin (Lipitor) PHA 11/10/24 In Process 22:00 Carvedilol Tablet PHA 11/10/24 In Process (Coreg Tablet) 22:00 Ibuprofen Tablet PHA 11/10/24 In Process (Motrin Tablet) 15:00 Valsartan (Diovan) PHA 11/11/24 In Process 10:00 * Cardiology Consult CONS 11/11/24 Transmitted 08:11 Nitrofurantoin PHA 11/11/24 In Process Capsule (Macrobid) 10:00 Furosemide Tablet PHA 11/12/24 In Process (Lasix Tablet) 10:00 Date of Service: Nov 11, 2024 Billing Provider: HLALIE GEORGE MD Common Visit Codes: [id number] INP/OBS CARE(HIGH) HALLIE GEORGE MD Nov 11, 2024 08:35
[2024-11-11 09:00] VITALS: BP 135/79; PULSE 84; RESP 17; TEMP 97.6; O2SAT 94
[2024-11-11] MEDS: EMPAGLIFLOZIN 10 MG TAB PO SCH (09:39)
[2024-11-11] MEDS: NITROFURANTOIN 100 mg CAP PO SCH (09:39)
[2024-11-11] MEDS: VALSARTAN 80 MG TAB PO SCH (09:39)
[2024-11-11] MEDS: SPIRONOLACTONE 25 MG TAB PO SCH (09:39)
[2024-11-11] MEDS ORDERED: FUROSEMIDE 40 MG TAB PO SCH (10:00)
[2024-11-11 13:00] VITALS: BP 107/71; PULSE 85; RESP 17; TEMP 97.5; O2SAT 94
[2024-11-11] MEDS ORDERED: DEXTROSE (50%) 50ML SYRG IV PRN (13:00)
--- NOTE | 2024-11-11 13:02 | DVHPN2 ---
Consult Progress Note Date Seen: Nov 11, 2024 Subjective Review of Systems: CVS:Normal, RESPIRATORY:Normal, NEURO:Normal Objective vital signs Vital Sign Date Time Temp Pulse Resp B/P (MAP) Pulse Ox O2 Delivery O2 Flow Rate FiO2 11/11/24 09:40 88 149/90 11/11/24 09:00 97.6 17 94 97.6 11/10/24 20:00 Room Air* 0 21 Total Intake and Output 11/10/24 11/10/24 11/11/24 15:00 23:00 07:00 Intake Total 525 ml Output Total 780 ml Balance -255 ml medications Current Medications Medications Dose Ordered Sig/Kellen Route Start Time Stop Time Status Last Admin Dose Admin Acetaminophen 650 mg Q6HP PRN PO 11/10/24 04:45 Atorvastatin Calcium 80 mg HS PO 11/10/24 22:00 11/10/24 22:16 80 MG Carvedilol 12.5 mg Q12HR PO 11/10/24 22:00 11/11/24 09:40 12.5 MG Ibuprofen 400 mg Q8HP PRN PO 11/10/24 15:00 11/11/24 05:46 400 MG Valsartan 80 mg DAILY PO 11/11/24 10:00 11/11/24 09:39 80 MG Spironolactone 25 mg DAILY PO 11/11/24 10:00 11/11/24 09:39 25 MG Empaglifozin 10 mg DAILY PO 11/11/24 10:00 11/11/24 09:39 10 MG Nitrofurantoin Macrocrystals 100 mg BID PO 11/11/24 10:00 11/16/24 09:59 11/11/24 09:39 100 MG Furosemide 40 mg DAILY PO 11/12/24 10:00 Examination: LUNGS:Normal, CVS:Normal, NEURO:Normal laboratory and microbiology Laboratory Tests 11/11/24 05:16 Test 11/11/24 05:16 Range/Units Serum Glucose 186 H 74-106 mg/dL Problem List/Assessment/Plan Problem List/Assessment/Plan Acute on chronic decompensated HFrEF, NYHA Class III Dilated/drug-induced cardiomyopathy Acute hypoxic respiratory failure Hypertensive urgency NSTEMI type 2 secondary to above Dyslipidemia, newly diagnosed Diabetes mellitus, newly diagnosed Polysubstance abuse with methamphetamines Alcohol dependence Tobacco use Medical noncompliance Obesity Plan/Recommendation (Dr. Tavares) * Echocardiogram revealed EF 30%. Grade II diastolic dysfunction * Continue GDMT for CHF including lasix, up-titrate as tolerated * Lipid-lowering agent, initiate insulin scale * Strongly counseled on medical compliance and polysubstance abuse cessation * Follow-up with Cardiology within 3-4 weeks post-discharge We will sign off at this time. Kindly call if in need to re-consult. Thank you for allowing us to participate in this patient's care. This medical document was created using an electronic medical record system with voice recognition software and computerized dictation system. Although this document has been carefully reviewed, there might still be some phonetic and typographical errors. Occasional wrong-word or ``sound-alike substitutions may have occurred due to the inherent limitations of voice recognition software. These areas are purely typographical due to imperfections of the software programs and do not reflect any compromise in the patient's medical care. Please read the chart carefully and recognize, using context, where these substitutions have occurred. Plan discussed with: Patient, Other Date of Service: Nov 11, 2024 Billing Provider: CHAITANYA TAVARES MD Cardiology Common Codes: [id number] [facility](High [facility] Nov 11, 2024 13:02
[2024-11-11] MEDS: ACCU-CHEK COMFORT CURVE STRIP VI SCH (16:46)
[2024-11-11] MEDS: InsuLIN REG 1unit/0.01ml Soln (100units/ml) SC SCH ×2 (16:46→21:24)
[2024-11-11 17:00] VITALS: BP 112/74; PULSE 87; RESP 18; TEMP 97.3; O2SAT 94
[2024-11-11 20:00] VITALS: PULSE 73; PULSE 91; RESP 19; O2SAT 96
[2024-11-12 01:00] VITALS: BP 109/72; PULSE 89; RESP 18; TEMP 97.3; O2SAT 93
[2024-11-12 05:00] VITALS: BP 113/84; PULSE 86; RESP 18; TEMP 97.6; O2SAT 97
[2024-11-12 06:13] LABS: Basophils # (auto) 0.1 10 ^3/uL (0-0.2); Eosinophils # (auto) 0.6 10 ^3/uL (0-0.8); Eosinophils % (auto) 4.5 % (0.0-7.0); Hematocrit 42.8 % (36.0-46.0); Hemoglobin 14.1 g/dL (12.2-16.2); Lymphocytes # (auto) 2.1 10 ^3/uL (0.4-5.4); Lymphocytes % (auto) 16.6 % (10.0-50.0); Mean Corpuscular Hemoglobin 28.2 pg (28.0-32.0); Mean Corpuscular Volume 85.7 fL (80.0-100.0); Monocytes % (auto) 8.1 % (0.0-12.0); Neutrophils % (auto) 69.8 % (37.0-80.0); Nucleated Red Blood Cells % 0.2 %; Platelet Count (auto) 237 10^3/uL (140-450); Red Blood Cells 4.99 10^6/uL (4.0-5.20); Red Cell Distribution Width 16.7 % (11.8-14.3); White Blood Cell 12.9 10^3/uL (4.4-10.8)
[2024-11-12 06:22] LABS: Chloride 104 mmol/L (98-107); Potassium 4.6 mmol/L (3.5-5.1)
[2024-11-12 06:23] LABS: Anion Gap 9 (5-15); Calcium 9.6 mg/dL (8.7-10.4); Carbon Dioxide 22 mmol/L (20-31)
[2024-11-12 06:28] LABS: BUN/Creatinine Ratio 17.6 (10.0-20.0); Blood Urea Nitrogen 16 mg/dL (9-23)
[2024-11-12 06:32] LABS: Glucose 146 mg/dL (74-106); Sodium 135 mmol/L (136-145)
[2024-11-12 08:00] VITALS: PULSE 88
[2024-11-12 09:00] VITALS: BP 123/89; PULSE 90; RESP 20; TEMP 97.8; O2SAT 95
[2024-11-12] MEDS: FUROSEMIDE 40 MG TAB PO SCH (09:28)
[2024-11-12] MEDS: ACETAMINOPHEN 325 MG TAB PO PRN (09:35)
[2024-11-12 13:00] VITALS: BP 99/61; PULSE 79; RESP 18; TEMP 97.3; O2SAT 93
[2024-11-12] MEDS ORDERED: ATOR-47 PO (13:57)
[2024-11-12] MEDS ORDERED: FURO40TA4 PO (13:57)
[2024-11-12] MEDS ORDERED: SPIR25TA PO (13:57)
[2024-11-12] MEDS ORDERED: SACU1TAB PO (13:57)
[2024-11-12] MEDS ORDERED: EMPA1TAB PO (13:57)
[2024-11-12] MEDS ORDERED: NITR-87 PO (13:57)
[2024-11-12] MEDS ORDERED: CARV12.544 PO (13:57)
--- NOTE | 2024-11-12 14:00 | DVHDS2 ---
Discharge Summary Date of Admission Nov 10, 2024 at 04:37 Date of Discharge: Nov 12, 2024 Labs/Diagnostic Data: Laboratory Results Test 11/12/24 04:44 11/11/24 21:21 11/11/24 05:16 11/10/24 17:42 White Blood Count 12.9 10^3/uL (4.4-10.8) Red Blood Count 4.99 10^6/uL (4.0-5.20) Hemoglobin 14.1 g/dL (12.2-16.2) Hematocrit 42.8 % (36.0-46.0) Mean Corpuscular Volume 85.7 fL (80.0-100.0) Mean Corpuscular Hemoglobin 28.2 pg (28.0-32.0) Mean Corpuscular Hemoglobin Concent 33.0 g/dL (32.0-36.0) Red Cell Distribution Width 16.7 % (11.8-14.3) Platelet Count 237 10^3/uL (140-450) Mean Platelet Volume 10.3 fL (6.9-10.8) Neutrophils (%) (Auto) 69.8 % (37.0-80.0) Lymphocytes (%) (Auto) 16.6 % (10.0-50.0) Monocytes (%) (Auto) 8.1 % (0.0-12.0) Eosinophils (%) (Auto) 4.5 % (0.0-7.0) Basophils (%) (Auto) 1.0 % (0.0-2.0) Neutrophils # (Auto) 9.0 10 ^3/uL (1.6-8.6) Lymphocytes # (Auto) 2.1 10 ^3/uL (0.4-5.4) Monocytes # (Auto) 1.0 10 ^3/uL (0-1.3) Eosinophils # (Auto) 0.6 10 ^3/uL (0-0.8) Basophils # (Auto) 0.1 10 ^3/uL (0-0.2) Nucleated Red Blood Cells 0.2 % Sodium Level 135 mmol/L (136-145) Potassium Level 4.6 mmol/L (3.5-5.1) Chloride Level 104 mmol/L (98-107) Carbon Dioxide Level 22 mmol/L (20-31) Anion Gap 9 (5-15) Blood Urea Nitrogen 16 mg/dL (9-23) Creatinine 0.91 mg/dL (0.550-1.02) Glomerular Filtration Rate Calc 82 mL/min (>90) BUN/Creatinine Ratio 17.6 (10.0-20.0) Serum Glucose 146 mg/dL (74-106) Calcium Level 9.6 mg/dL (8.7-10.4) POC Glucose 244 mg/dl (70-106) Hemoglobin A1c 7.3 % A1C (<5.7) Phosphorus Level 3.1 mg/dL (2.4-5.1) Magnesium Level 1.9 mg/dL (1.6-2.6) B-Type Natriuretic Peptide 250.47 pg/mL (0-100) Triglycerides Level 181 mg/dL (< 150) Cholesterol Level 172 mg/dL (< 200) LDL Cholesterol 138 mg/dL (< 100) HDL Cholesterol 20 mg/dL (40-59) Thyroid Stimulating Hormone (TSH) 3.62 uIU/mL (0.55-4.78) Urine Color Yellow (Yellow) Urine Clarity Turbid (Clear) Urine pH 5.5 (5.0-9.0) Urine Specific [place] 1.018 (1.001-1.035) Urine Protein 2+ (Negative) Urine Ketones Negative (Negative) Urine Blood Negative /uL (Negative) Urine Nitrite 2+ (Negative) Urine Bilirubin Negative (Negative) Urine Urobilinogen Normal mg/dL (Negative) Urine Leukocyte Esterase Negative /uL (Negative) Urine RBC 3 /hpf (0 - 4) Urine WBC 2 /hpf (0 - 5) Urine Squamous Epithelial Cells Few /hpf (<5) Urine Bacteria Mod /hpf (None Seen) Urine Mucus Few (None Seen) Urine Glucose Normal mg/dL (Normal) Urine Opiates Screen Neg (NEGATIVE) Urine Fentanyl Screen Neg (NEGATIVE) Urine Barbiturates Screen Neg (NEGATIVE) Urine Phencyclidine Screen Neg (NEGATIVE) Urine Amphetamines Screen Pos (NEGATIVE) Urine Benzodiazepines Screen Neg (NEGATIVE) Urine Cocaine Screen Neg (NEGATIVE) Urine Cannabinoids Screen Neg (NEGATIVE) Test 11/10/24 06:14 11/10/24 03:08 Troponin I High Sensitivity 76 ng/L (</=34) Plasma/Serum Blood Alcohol < 3.0 mg/dL (<10) Other Laboratory Tests 11/12/24 04:44 Brief Hx & Hospital Course: 39 F admitted for HFrEF with exacerbation, patient used meth, evaluated by cardio. Started on GDMT, however prior noncompliance. Patient is diuresed to euvolemia, to be discharged with GDMT and follow up with cardio. Reinforced compliance and abstinence from substances. Stable to DC home Condition at Discharge: Good Final Diagnosis/Problems List New onset HFrEF Discharge Disposition: Home Discharge Instruct/Medications Diet: Consistent carbohydrate, Cardiac 2g Na,low cholest Activity: No Restrictions, As Tolerated Follow Up/Referral: cardiology PCP Medications: coreg entresto jardiance aldactone lipitor 45 Discharge Statement: "Patient was advised to return to the ER or call 911 if any headaches, dizziness, shortness of breath, chest pain, abdominal pain, bleeding, fevers, or worsening of medical condition. Patient was counseled about treatment plan, medications, possible side effects, patientverbalized understanding. All questions were answered to the best of my ability. 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
[2024-11-12 15:06] VITALS: BP 114/77; PULSE 80; RESP 20; TEMP 97.5; O2SAT 97
== END 2024-11-12 15:56 | disposition home or self-care (01) | DRG 194 ==
LOC: ER 01:56 → TELE 04:37 → TELE-WESTW 18:28
PROVIDERS: ADMIT Nurse Practitioner; ATTEND Student in an Organized Health Care Education/Training Program
DX: I11.0 Hypertensive heart disease with heart failure (principal); I21.A1 Myocardial infarction type 2; J96.11 Chronic respiratory failure with hypoxia; I42.0 Dilated cardiomyopathy; I50.43 Acute on chronic combined systolic (congestive) and diastolic (congestive) heart failure; I42.7 Cardiomyopathy due to drug and external agent; E66.9 Obesity, unspecified; I34.0 Nonrheumatic mitral (valve) insufficiency; F15.90 Other stimulant use, unspecified, uncomplicated; F10.20 Alcohol dependence, uncomplicated; Y90.9 Presence of alcohol in blood, level not specified; F17.210 Nicotine dependence, cigarettes, uncomplicated; J45.909 Unspecified asthma, uncomplicated; I16.0 Hypertensive urgency; E11.9 Type 2 diabetes mellitus without complications; E78.5 Hyperlipidemia, unspecified; E88.810 Metabolic syndrome; Z68.35 Body mass index [BMI] 35.0-35.9, adult; Z91.148 Patient's other noncompliance with medication regimen for other reason; Z79.84 Long term (current) use of oral hypoglycemic drugs; Z82.49 Family history of ischemic heart disease and other diseases of the circulatory system; Z91.199 Patient's noncompliance with other medical treatment and regimen due to unspecified reason
CPT/HCPCS: 36415; 71046; 80048; 80061; 80307; 80320; 81001; 82962; 83036; 83735; 83880; 84100; 84443; 84484; 85025; 93005; 93306; 96374; 96375; 99291; G0378; J1815

== ENCOUNTER 2025-06-30 19:29 | Emergency (ER) | payer MEDICAID ==
[~2025-06-30] VITALS: Ht 162.6 cm; Wt 86.2 kg
[~2025-06-30 19:29] MED LIST: ATOR-47 PO; CARV12.544 PO; EMPA1TAB PO; FURO40TA4 PO; NITR-87 PO; SACU1TAB PO; SPIR25TA PO
--- NOTE | 2025-06-30 20:02 | ED.PDOC ---
GI ASSESSMENT HPI Comments 39 year old female presents to the ED with a chief complaint of abdominal pain onset today (06/30/25). Patient states she woke up today experiencing sharp abdominal pain as well as dizziness, nausea/vomiting, bloating. Patient called 911, requested to be taken to [facility], was taken to [place]. Patient states she has a PMHx asthma, HTN, gallstones, was told there "was a problem with gallbladder", patient signed out AMA, came to [facility] ED. Patient states she was given IV fluids and anti-coagulants. Denies fever, chills, diarrhea, chest pain, shortness of breath, hematemesis, constipation, melena, dysuria, hematuria. No other associated symptoms, modifiers, recent injuries or sick contacts present at this time. Chief Complaint: Abdominal Pain Time Seen by MD: 19:55 Primary Care Provider: Dr. Fitzgerald Reviewed Notes: Medications, Allergies Allergies: Coded Allergies: NO KNOWN ALLERGIES (Unverified , 12/30/20) Home Meds Active Scripts Sacubitril-Valsartan (Entresto 24-26 mg) 1 Tab Tab, 1 TAB PO BID for 30 Days, #60 TAB Prov:HALLIE GEORGE MD 11/12/24 Spironolactone (Aldactone) 25 Mg Tab, 25 MG PO DAILY for 90 Days, #90 TAB Prov:HALLIE GEORGE MD 11/12/24 Nitrofurantoin Monohydrate Mac (Macrobid) 100 Mg Cap, 100 MG PO BID for 5 Days, #10 CAP Prov:HALLIE GEORGE MD 11/12/24 Furosemide (Furosemide) 40 Mg Tab, 40 MG PO DAILY for 30 Days, #30 TAB Prov:HALLIE GEORGE MD 11/12/24 Empagliflozin (Jardiance) 10 Mg Tab, 10 MG PO DAILY for 90 Days, #90 TAB Prov:HALLIE GEORGE MD 11/12/24 Carvedilol (Carvedilol) 12.5 Mg Tab, 1 TAB PO BID, #60 TAB 0 Refills Prov:HALLIE GEORGE MD 11/12/24 Atorvastatin Calcium (ATORVASTATIN CALCIUM) 80 Mg Tab, 1 TAB PO DAILY for 90 Days, #90 TAB 0 Refills Prov:HALLIE GEORGE MD 12/12/24 Information Source: Patient Mode of Arrival: Ambulatory Timing: Hours Duration: Since onset Prehospital treatment: None Quality: Sharp Severity: Moderate Recent: None Recent Hx of: None Pain Location: Diffuse Associated sign and symptoms: Nausea, Vomiting, Abdominal Pain Past Medical History PAST MEDICAL HISTORY: Asthma, Gallstones, HTN Surgical History: Denies all surgeries COPY CENTER OPERATOR History: No Pertinent COPY CENTER OPERATOR History Family History Family History: Unknown Social History Smoker: Cigarettes Alcohol: Occasionally Drugs: Cocaine, Heroin, Marijuana, Methamphetamine Lives In: Home Constitutional: denies: chills, diaphoresis, fatigue, fever, malaise, sweats, weakness, others EENTM: denies: blurred vision, double vision, ear bleeding, ear discharge, ear drainage, ear pain, ear ringing, eye pain, eye redness, hearing loss, mouth pain, mouth swelling, nasal discharge, nose bleeding, nose congestion, nose pain, photophobia, tearing, throat pain, throat swelling, voice changes, others Respiratory: denies: cough, hemoptysis, orthopnea, SOB at rest, shortness of breath, SOB with excertion, stridor, wheezing, others Cardiovascular: denies: chest pain, dizzy spells, diaphoresis, Dyspnea on exertion, edema, irregular heart beat, left arm pain, lightheadedness, palpitations, PND, syncope, others Gastrointestinal: reports: abdomen distended, abdominal pain, nausea, vomiting; denies: blood streaked bowels, constipated, diarrhea, dysphagia, difficulty swallowing, hematemesis, melena, poor appetite, poor fluid intake, rectal bleeding, rectal pain, others Genitourinary: denies: abnormal vagina bleeding, burning, dyspareunia, dysuria, flank pain, frequency, hematuria, incontinence, pain, , vagina discharge, urgency, others Neurological: reports: dizziness; denies: fainting, headache, left sided numbness, left sided weakness, numbness, paresthesia, pre-existing deficit, right sided numbness, right sided weakness, seizure, speech problems, tingling, tremors, weakness, others Musculoskeletal: denies: back pain, gout, joint pain, joint swelling, muscle pain, muscle stiffness, neck pain, others Integumetry: denies: bruises, change in color, change in hair/nails, dryness, laceration, lesions, lumps, rash, wounds, others Allergic/Immunocompromised: denies: Difficulty Healing, Frequent Infections, Hives, Itching, others Hematologic/Lymphatic: denies: anemia, blood clots, easy bleeding, easy bruising, swollen glands, others Endocrine: denies: excessive hunger, excessive sweating, excessive thirst, excessive urination, flushing, intolerance to cold, intolerance to heat, unexplained weight gain, unexplained weight loss, others Psychiatric: denies: anxiety, bipolar disorder, depression, hopeless, panic dis order, schizophrenia, sleepless, suicidal, others All Other Systems: Reviewed and Negative Physical Exam General Appearance: Normal HEENT: Normal ENT Inspection, Pharynx Normal, TMs Normal Neck: Full Range of Motion, Non-Tender, Normal, Normal Inspection Respiratory: Chest Non-Tender, Lungs Clear, No Accessory Muscle Use, No Respiratory Distress, Normal Breath Sounds Cardiovascular: No Edema, No JVD, No Murmur, No Gallop, Normal Peripheral Pulses, Regular Rate/Rhythm Breast Exam: Deferred Gastrointestinal: No Organomegaly, Non Tender, No Pulsatile Mass, Normal Bowel Sounds, Soft Genitalia: Deferred Pelvic: Deferred Rectal: Deferred Extremities: No calf tenderness, Normal capillary refill, Normal inspection, Normal range of motion, Non-tender, No pedal edema Musculoskeletal : Apperance: Normal Neurologic: Alert, track repair laborer II-XII nml as Tested, No Motor Deficits, Normal Affect, Normal Mood, No Sensory Deficits Cerebellar Function: Normal Reflexes: Normal Skin: Dry, Normal Color, Warm Lymphatic: No Adenopathy Was a procedure done? Was a procedure done?: No GI differential Dx Differential Diagnosis: Diverticular disease, Gastritis/PUD, Gastroenteritis, GI hemorrhage, Hypovolemia, Kidney Stone, Other X-Ray, Labs, Meds, VS Vital Signs Date Time Temp Pulse Resp B/P (MAP) Pulse Ox O2 Delivery O2 Flow Rate FiO2 06/30/25 23:43 97.9 79 20 115/76 (89) 96 97.9 06/30/25 21:09 79 24 96 Room Air* 0 21 21 06/30/25 21:04 97.5 79 24 111/77 (88) 96 97.5 06/30/25 19:39 97.4 78 18 107/68 96 97.4 Lab Test 06/30/25 20:43 06/30/25 20:19 Range/Units Urine Color Colorless Yellow Urine Clarity Clear Clear Urine pH 6.0 5.0-9.0 Urine Specific [place] 1.007 1.001-1.035 Urine Protein 1+ H Negative Urine Ketones Negative Negative Urine Blood Negative Negative /uL Urine Nitrite Negative Negative Urine Bilirubin Negative Negative Urine Urobilinogen Normal Negative mg/dL Urine Leukocyte Esterase Negative Negative /uL Urine RBC 1 0 - 4 /hpf Urine Microscopic WBC 2 0-5 /HPF Urine Squamous Epithelial Cells Few <5 /hpf Urine Bacteria Few H None Seen /hpf Urine Hyaline Casts Few 0 - 2 /lpf Urine Glucose 4+ H Normal mg/dL White Blood Count 9.7 4.4-10.8 10^3/uL Red Blood Count 5.79 H 4.0-5.20 10^6/uL Hemoglobin 15.3 12.2-16.2 g/dL Hematocrit 46.8 H 36.0-46.0 % Mean Corpuscular Volume 80.8 80.0-100.0 fL Mean Corpuscular Hemoglobin 26.4 L 28.0-32.0 pg Mean Corpuscular Hemoglobin Concent 32.7 32.0-36.0 g/dL Red Cell Distribution Width 17.8 H 11.8-14.3 % Platelet Count 182 140-450 10^3/uL Mean Platelet Volume 9.9 6.9-10.8 fL Neutrophils (%) (Auto) 71.8 37.0-80.0 % Lymphocytes (%) (Auto) 17.2 10.0-50.0 % Monocytes (%) (Auto) 7.6 0.0-12.0 % Eosinophils (%) (Auto) 2.4 0.0-7.0 % Basophils (%) (Auto) 1.0 0.0-2.0 % Neutrophils # (Auto) 6.9 1.6-8.6 10 ^3/uL Lymphocytes # (Auto) 1.7 0.4-5.4 10 ^3/uL Monocytes # (Auto) 0.7 0-1.3 10 ^3/uL Eosinophils # (Auto) 0.2 0-0.8 10 ^3/uL Basophils # (Auto) 0.1 0-0.2 10 ^3/uL Nucleated Red Blood Cells 0.3 % Sodium Level 137 136-145 mmol/L Potassium Level 4.2 3.5-5.1 mmol/L Chloride Level 108 H 98-107 mmol/L Carbon Dioxide Level 21 20-31 mmol/L Anion Gap 8 5-15 Blood Urea Nitrogen 14 9-23 mg/dL Creatinine 0.73 0.550-1.02 mg/dL Glomerular Filtration Rate Calc 107 >90 mL/min BUN/Creatinine Ratio 19.2 10.0-20.0 Serum Glucose 194 H 74-106 mg/dL Calcium Level 8.7 8.7-10.4 mg/dL Total Bilirubin 1.6 H 0.2-1.0 mg/dL Aspartate Amino Transferase (AST) 37 13-40 U/L Alanine Aminotransferase (ALT) 33 7-40 U/L Alkaline Phosphatase 166 H 46-116 U/L Total Protein 5.7 5.7-8.2 g/dL Albumin 3.4 3.2-4.8 g/dL Lipase 78 H 12-53 U/L Current Medications Medications (Trade) Dose Ordered Sig/Kellen Route Start Time Stop Time Status Last Admin Ondansetron HCl (Zofran Po) 4 mg ONCE ONCE PO 06/30/25 20:00 06/30/25 20:01 DC 06/30/25 21:04 [place] [address] Ph: [phone] DIAGNOSTIC IMAGING Diagnostic Imaging Report : [id number] Signed PATIENT: YAMILA MORROWCCT: [id number] UNIT: [id number] : 1985 LOC: ER ROOM / BED: / AGE / SEX: 39 / F ADM STATUS: REG ER SERVICE 56 ORDERING PHYSICIAN: DELL JACOME MD PROCEDURE(s): GBUS - GALLBLADDER REASON: abd pain ORDER NUMBER(s): [id number], ACCESSION NUMBER(s): [id number] ABDOMINAL ULTRASOUND CLINICAL HISTORY: abd pain TECHNIQUE: Multiple grayscale and color Doppler ultrasound images were obtained of the abdomen. WID: COMPARISON: None FINDINGS: Liver and Biliary System: Homogeneous echotexture, mild hepatomegaly measuring 21 cm. No focal hepatic observations. No intrahepatic bile duct dilatation. The common duct measures 0.3 cm at the vinod hepatis. The gallbladder is filled with gallstones and gallbladder wall thickening measuring 5.3 mm. Pancreas: Visualized portions are unremarkable. Kidneys: The right kidney is 11.1 cm . No hydronephrosis, increased echogenicity, shadowing stone, or focal lesion. IMPRESSION: Cholelithiasis (stone filled gallbladder). Hepatomegaly. ATED BY: SONIA JUÁREZ MD DICTATED DATE/TIME: 06/30/252052 SIGNED BY: SONIA JUÁREZ MD SIGNED DATE/TIME: 06/30/252052 CC: Time of 1ST Reevaluation: 20:25 Reevaluation 1ST: Unchanged Patient Education/Counseling: Diagnosis, Treatment, Prognosis Family Education/Counseling: No Family Present Additional Information The following tests were ordered, and results were reviewed by me: CBC, CMP, UA, LIPASE, US GALLBLADDER I reviewed and agreed with the following test results read by other providers: US GALLBLADDER I discussed treatment and results with medical personnel and: patient Comprehensive systems review obtained and negative except for what is stated in the HPI. SEPSIS Sepsis Screen Date sepsis recognized/suspect: Jun 30, 2025 Time Sepsis recognized/suspect: 1938 Recent Procedure: No On Antibiotic Therapy: No Respiratory Rate >20: No Heart Rate >90: No Temp<36 C (96.8 F) or >38.3 C: No SBP <90 or MAP <65 mmHG: No New Acute Mental Status Change: No Is the patient on CPAP, BIPAP,: No Physician Orders Gallbladder (06/30/25 19:57) Vital Signs Date Time Temp Pulse Resp B/P (MAP) Pulse Ox O2 Delivery O2 Flow Rate FiO2 06/30/25 23:43 97.9 79 20 115/76 (89) 96 97.9 06/30/25 21:09 79 24 96 Room Air* 0 21 21 06/30/25 21:04 97.5 79 24 111/77 (88) 96 97.5 06/30/25 19:39 97.4 78 18 107/68 96 97.4 Laboratory Tests Test 06/30/25 20:19 White Blood Count 9.7 10^3/uL (4.4-10.8) Medications Medications Dose Ordered Sig/Kellen Route Start Time Stop Time Status Last Admin Dose Admin Ondansetron HCl 4 mg ONCE ONCE PO 06/30/25 20:00 06/30/25 20:01 DC 7/30/25 21:04 Departure 1 Departure Time of Disposition: 22:15 Impression: Primary Impression: Cholelithiasis Additional Impression: Chronic pancreatitis Disposition: 01 HOME / SELF CARE / HOMELESS Condition: Guarded Discharged With: Self Critical Care Note Critical Care Time?: No Stability Stability form required: No I personally scribed for DELL JACOME MD ([email or web address]) on 06/30/25 at 20:02. Electronically submitted by Edie Mendoza ([email or web address]). I personally scribed for DELL JACOME MD ([email or web address]) on 06/30/25 at 20:07. Electronically submitted by Edie Mendoza ([email or web address]). I personally scribed for DELL JACOME MD ([email or web address]) on 06/30/25 at 21:18. Electronically submitted by Edie Mendoza ([email or web address]). DELL JACOME MD Jun 30, 2025 20:02
[2025-06-30 20:45] LABS: Alanine Aminotransferase 33 U/L (7-40); Albumin 3.4 g/dL (3.2-4.8); Anion Gap 8 (5-15); BUN/Creatinine Ratio 19.2 (10.0-20.0); Blood Urea Nitrogen 14 mg/dL (9-23); Carbon Dioxide 21 mmol/L (20-31); Potassium 4.2 mmol/L (3.5-5.1); Sodium 137 mmol/L (136-145); Total Protein 5.7 g/dL (5.7-8.2)
--- NOTE | 2025-06-30 20:55 | DVH ---
ABDOMINAL ULTRASOUND CLINICAL HISTORY: abd pain TECHNIQUE: Multiple grayscale and color Doppler ultrasound images were obtained of the abdomen. WID: COMPARISON: None FINDINGS: Liver and Biliary System: Homogeneous echotexture, mild hepatomegaly measuring 21 cm. No focal hepa tic observations. No intrahepatic bile duct dilatation. The common duct measures 0.3 cm at the port a hepatis. The gallbladder is filled with gallstones and gallbladder wall thickening measuring 5.3 mm. Pancreas: Visualized portions are unremarkable. Kidneys: The right kidney is 11.1 cm . No hydronephrosis, increased echogenicity, shadowing stone, or focal lesion. IMPRESSION: Cholelithiasis (stone filled gallbladder). Hepatomegaly.
[2025-06-30 20:58] LABS: Alkaline Phosphatase 166 U/L (46-116); Bilirubin, Total 1.6 mg/dL (0.2-1.0); Calcium 8.7 mg/dL (8.7-10.4); Chloride 108 mmol/L (98-107); Glucose 194 mg/dL (74-106); Lipase 78 U/L (12-53)
[2025-06-30 21:01] LABS: Hematocrit 46.8 % (36.0-46.0); Hemoglobin 15.3 g/dL (12.2-16.2); Mean Corpuscular Hemoglobin 26.4 pg (28.0-32.0); Mean Corpuscular Volume 80.8 fL (80.0-100.0); Nucleated Red Blood Cells % 0.3 %
[2025-06-30] MEDS: ONDANSETRON ODT 4 MG TAB PO ONE (21:04)
[2025-06-30 21:09] VITALS: PULSE 79; RESP 24; O2SAT 96
[2025-06-30 21:34] LABS: Urine Protein, UAD 1+ (Negative)
[2025-06-30 23:43] VITALS: BP 115/76; PULSE 79; RESP 20; TEMP 97.9; O2SAT 96
== END 2025-06-30 23:47 | disposition home or self-care (01) ==
LOC: ER 19:29
DX: K80.20 Calculus of gallbladder without cholecystitis without obstruction (principal); K86.1 Other chronic pancreatitis; I10 Essential (primary) hypertension; F17.210 Nicotine dependence, cigarettes, uncomplicated; J45.909 Unspecified asthma, uncomplicated; Z79.84 Long term (current) use of oral hypoglycemic drugs; Z79.899 Other long term (current) drug therapy
CPT/HCPCS: 36415; 76705; 80053; 81001; 83690; 85025; 99284; Q0162

== ENCOUNTER 2025-07-13 07:34 | Inpatient (IN) | payer MEDICAID ==
[~2025-07-13] VITALS: Ht 160 cm; Wt 84.2 kg
--- NOTE | 2025-07-13 07:49 | ED.PDOC ---
SOB-HPI HPI Comments 40 y/o F, with PMHx of CHF, HTN, and asthma presents to the ED for CC of shortness of breath. Patient states, she has been experiencing worsening shortness of breath x1week with associated generalized extremity swelling [id number]. Patient reports, that she is non-complaint with all medications and recently got her Lasix discontinued by her PCP which she believes is now causing her extremity swelling. Patient endorses recent methamphetamine usage [id number]. Patient denies cough, chest pain, cold symptoms, or palpitations. No other symptoms or modifying factors present at this time. Chief Complaint: Shortness of Breath Time Seen by MD: 07:50 Primary Care Provider: Dr. Fitzgerald Reviewed notes: Nurses Notes, Medications, Allergies Information Source: Patient Mode of Arrival: Ambulatory Severity: Moderate Timing: Weeks Duration: Since onset Context: With Light Exertion PE Risk Factors: None History of: Asthma, CHF Prehospital treatment: None Modifying Factors: Nothing Associated Signs and Symptoms: Leg Swelling Past Medical History PAST MEDICAL HISTORY: Asthma, CHF, Gallstones, HTN Surgical History: Denies all surgeries MARKER ASSEMBLER History: No Pertinent MARKER ASSEMBLER History Family History Family History: Unknown Social History Smoker: Cigarettes Alcohol: Occasionally Drugs: Cocaine, Heroin, Marijuana, Methamphetamine Lives In: Home Constitutional: denies: chills, diaphoresis, fatigue, fever, malaise, sweats, weakness, others EENTM: denies: blurred vision, double vision, ear bleeding, ear discharge, ear drainage, ear pain, ear ringing, eye pain, eye redness, hearing loss, mouth pain, mouth swelling, nasal discharge, nose bleeding, nose congestion, nose pain, photophobia, tearing, throat pain, throat swelling, voice changes, others Respiratory: reports: shortness of breath; denies: cough, hemoptysis, orthopnea, SOB at rest, SOB with excertion, stridor, wheezing, others Cardiovascular: denies: chest pain, dizzy spells, diaphoresis, Dyspnea on exertion, edema, irregular heart beat, left arm pain, lightheadedness, palpitations, PND, syncope, others Gastrointestinal: denies: abdomen distended, abdominal pain, blood streaked bowels, constipated, diarrhea, dysphagia, difficulty swallowing, hematemesis, melena, nausea, poor appetite, poor fluid intake, rectal bleeding, rectal pain, vomiting, others Genitourinary: denies: abnormal vagina bleeding, burning, dyspareunia, dysuria, flank pain, frequency, hematuria, incontinence, pain, , vagina discharge, urgency, others Neurological: denies: dizziness, fainting, headache, left sided numbness, left sided weakness, numbness, paresthesia, pre-existing deficit, right sided numbness, right sided weakness, seizure, speech problems, tingling, tremors, weakness, others Musculoskeletal: reports: others (genralized extremity swelling); denies: back pain, gout, joint pain, joint swelling, muscle pain, muscle stiffness, neck pain Integumetry: denies: bruises, change in color, change in hair/nails, dryness, laceration, lesions, lumps, rash, wounds, others Allergic/Immunocompromised: denies: Difficulty Healing, Frequent Infections, Hives, Itching, others Hematologic/Lymphatic: denies: anemia, blood clots, easy bleeding, easy bruising, swollen glands, others Endocrine: denies: excessive hunger, excessive sweating, excessive thirst, excessive urination, flushing, intolerance to cold, intolerance to heat, unexplained weight gain, unexplained weight loss, others Psychiatric: denies: anxiety, bipolar disorder, depression, hopeless, panic disorder, schizophrenia, sleepless, suicidal, others All Other Systems: Reviewed and Negative Physical Exam General Appearance: No Apparent Distress, Normal HEENT: Pharyngeal Erythema Neck: Normal Inspection Respiratory: Rales Cardiovascular: Other (lower extremity edema) Breast Exam: Deferred Gastrointestinal: Non Tender Genitalia: Deferred Pelvic: Deferred Rectal: Deferred Extremities: Non-tender, Pedal edema Neurologic: No Motor Deficits Cerebellar Function: NOT DONE Reflexes: NOT DONE Skin: Normal Color Lymphatic: NOT DONE EKG EKG : Pulse Rate (adult): 108 [place]: Normal Cardiac Rhythm: ST Block: None Hypertrophy: None ST: Normal Was a procedure done? Was a procedure done?: No Differential Dx Differential Diagnosis: Asthma, CHF, Pneumonia, URI X-Ray, Labs, Meds, VS Vital Signs Date Time Temp Pulse Resp B/P (MAP) Pulse Ox O2 Delivery O2 Flow Rate FiO2 07/13/25 08:06 108 07/13/25 07:52 105 07/13/25 07:37 97.7 116 20 157/117 96 97.7 Lab Test 07/13/25 09:54 Range/Units White Blood Count 10.1 4.4-10.8 10^3/uL Red Blood Count 6.35 H 4.0-5.20 10^6/uL Hemoglobin 16.1 12.2-16.2 g/dL Hematocrit 49.7 H 36.0-46.0 % Mean Corpuscular Volume 78.2 L 80.0-100.0 fL Mean Corpuscular Hemoglobin 25.4 L 28.0-32.0 pg Mean Corpuscular Hemoglobin Concent 32.5 32.0-36.0 g/dL Red Cell Distribution Width 19.4 H 11.8-14.3 % Platelet Count 181 140-450 10^3/uL Mean Platelet Volume 10.3 6.9-10.8 fL Neutrophils (%) (Auto) 73.7 37.0-80.0 % Lymphocytes (%) (Auto) 16.3 10.0-50.0 % Monocytes (%) (Auto) 8.4 0.0-12.0 % Eosinophils (%) (Auto) 1.5 0.0-7.0 % Basophils (%) (Auto) 0.1 0.0-2.0 % Neutrophils # (Auto) 7.4 1.6-8.6 10 ^3/uL Lymphocytes # (Auto) 1.6 0.4-5.4 10 ^3/uL Monocytes # (Auto) 0.8 0-1.3 10 ^3/uL Eosinophils # (Auto) 0.2 0-0.8 10 ^3/uL Basophils # (Auto) 0 0-0.2 10 ^3/uL Nucleated Red Blood Cells 0.3 % Sodium Level 139 136-145 mmol/L Potassium Level 3.9 3.5-5.1 mmol/L Chloride Level 108 H 98-107 mmol/L Carbon Dioxide Level 20 20-31 mmol/L Anion Gap 11 5-15 Blood Urea Nitrogen 10 9-23 mg/dL Creatinine 0.75 0.550-1.02 mg/dL Glomerular Filtration Rate Calc 103 >90 mL/min BUN/Creatinine Ratio 13.3 10.0-20.0 Serum Glucose 142 H 74-106 mg/dL Calcium Level 9.0 8.7-10.4 mg/dL Troponin I High Sensitivity 804 *H </=34 ng/L B-Type Natriuretic Peptide 821.57 0-100 pg/mL [facility] [id number] [facility] [address] Ph: [phone] DIAGNOSTIC IMAGING Diagnostic Imaging Report : [id number] Signed PATIENT: YAMILA MORROWCCT: [id number] UNIT: [id number] : 1985 LOC: ER ROOM / BED: / AGE / SEX: 40 / F ADM STATUS: REG ER SERVICE 7 ORDERING PHYSICIAN: HAYDEN HILL MD PROCEDURE(s): CXRP - CHEST PORTABLE REASON: sob ORDER NUMBER(s): [id number], ACCESSION NUMBER(s): [id number] XY CHEST PORTABLE, HISTORY: sob COMPARISON: XY CHEST TWO VIEWS ROUTINE on DOS: 11/10/24, CHEST XRAY 1 VIEW on DO S: 12/30/20 XY CHEST TWO VIEWS ROUTINE on DOS: 11/10/24, CHEST XRAY 1 VIEW on DOS: 12/30/20 TECHNICAL DATA: 1 view of the chest was obtained. FINDINGS: Lines and tubes: None Cardiomediastinal silhouette: enlarged Pulmonary vasculature: prominent Lung expansion: normal Lung airspace: normal Lung interstitium: normal Pleura: normal Pneumothorax: no Bones: Unremarkable Other: no IMPRESSION: Cardiomegaly with pulmonary vascular congestion. ATED BY: HARPREET GALE MD DICTATED DATE/TIME: 07/13/25942 SIGNED BY: HARPREET GALE MD SIGNED DATE/TIME: 07/13/25942 CC: Time of 1ST Reevaluation: 08:20 Reevaluation 1ST: Unchanged Patient Education/Counseling: Diagnosis, Treatment Family Education/Counseling: No Family Present SEPSIS Sepsis Screen Date sepsis recognized/suspect: Jul 13, 2025 Time Sepsis recognized/suspect: 0737 Recent Procedure: No On Antibiotic Therapy: No Respiratory Rate >20: No Heart Rate >90: Yes Temp<36 C (96.8 F) or >38.3 C: No SBP <90 or MAP <65 mmHG: No New Acute Mental Status Change: No Is the patient on CPAP, BIPAP,: No Physician Orders Electrocardigram (07/13/25 08:47) Electrocardigram (07/13/25 10:47) Urinalysis (07/13/25 08:08) Chest Portable (07/13/25 08:08) Troponin-I Hs (07/13/25 09:08) Troponin-I Hs (07/13/25 11:08) Furosemide Injection (Lasix Injection) (07/13/25 10:45) Vital Signs Date Time Temp Pulse Resp B/P (MAP) Pulse Ox O2 Delivery O2 Flow Rate FiO2 07/13/25 08:06 108 07/13/25 07:52 105 07/13/25 07:37 97.7 116 20 157/117 96 97.7 Laboratory Tests Test 07/13/25 09:54 White Blood Count 10.1 10^3/uL (4.4-10.8) Departure 1 Departure Time of Disposition: 10:41 (Patient presented with shortness of breath that was concerning for possible STEMI, ACS, PE, Pneumonia, Muscle Strain, COPD, Dissection, Acute on Chronic systolic and Diastolic dysfunction. Data: 1. I ordered and reviewed the result of at least 3 labs including a CBC, BMP, and Troponin. 2. I independently interpreted the following tests: EKG which shows sinus arrhthmia and Chest X-ray which shows cardiomegaly.Risk:This patient has a high risk of morbidity due to further diagnostic testing or treatment and may suffer from an acute cardiac or respiratory disorder but is most consitent with an acute chf exacerbation. Patient should be admitted for further workup and possible expert consultation. ) Impression: Primary Impression: Acute on chronic systolic heart failure Additional Impressions: Shortness of breath Generalized weakness Elevated troponin Disposition: ADMITTED INPATIENT Admit to: Tele Condition: Serious Critical Care Note Critical Care Time?: Yes Critical care comment: Acute on chronic systolic failure, elevated troponin Authorized and Performed by: Hayden Hill MD Total critical care time: Approximately 44 minutes Due to a high probability of clinically significant, life threatening deterioration, the patient required my highest level of preparedness to intervene emergently and I personally spent this critical care time directly and personally managing the patient. This critical care time included obtaining a history; examining the patient; pulse oximetry; ordering and review of studies; arranging urgent treatment with development of a management plan; evaluation of patient's response to treatment; frequent reassessment; and, discussions with other providers. This critical care time was performed to assess and manage the high probability of imminent, life-threatening deterioration that could result in multi-organ failure. It was exclusive of separately billable procedures and treating other patients and teaching time. Please see my other sections and the rest of the note for further information on patient assessment and treatment. Stability Stability form required: No Heart Score Heart Score: Heart Score Response (Comments) Value History Slightly Suspicious 0 EKG Repolarization Disturb 1 Age <45 0 Risk Factors 1 or 2 risk factors 1 Troponin >3 x's Normal limit 2 Total 4 I personally scribed for HAYDEN HILL MD ([email or web address]) on 07/13/25 at 07:49. Electronically submitted by Oriana Belle ([email or web address]). I personally scribed for HAYDEN HILL MD ([email or web address]) on 07/13/25 at 08:06. Electronically submitted by Oriana Belle ([email or web address]). I personally scribed for HAYDEN HILL MD ([email or web address]) on 07/13/25 at 10:33. Electronically submitted by Oriana Belle ([email or web address]). HAYDEN HILL MD Jul 13, 2025 07:49
--- NOTE | 2025-07-13 07:54 | ECG ---
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
--- NOTE | 2025-07-13 09:45 | DVH ---
XY CHEST PORTABLE, HISTORY: sob COMPARISON: XY CHEST TWO VIEWS ROUTINE on DOS: 11/10/24, CHEST XRAY 1 VIEW on DOS: 12/30/20 XY CHEST TWO VIEWS ROUTINE on DOS: 11/10/24, CHEST XRAY 1 VIEW on DOS: 12/30/20 TECHNICAL DATA: 1 view of the chest was obtained. FINDINGS: Lines and tubes: None Cardiomediastinal silhouette: enlarged Pulmonary vasculature: prominent Lung expansion: normal Lung airspace: normal Lung interstitium: normal Pleura: normal Pneumothorax: no Bones: Unremarkable Other: no IMPRESSION: Cardiomegaly with pulmonary vascular congestion.
[2025-07-13 10:17] LABS: Potassium 3.9 mmol/L (3.5-5.1); Sodium 139 mmol/L (136-145)
[2025-07-13 10:18] LABS: Anion Gap 11 (5-15); Calcium 9.0 mg/dL (8.7-10.4); Carbon Dioxide 20 mmol/L (20-31)
[2025-07-13 10:22] LABS: Hemoglobin 16.1 g/dL (12.2-16.2)
[2025-07-13 10:23] LABS: BUN/Creatinine Ratio 13.3 (10.0-20.0); Blood Urea Nitrogen 10 mg/dL (9-23); Hematocrit 49.7 % (36.0-46.0); Mean Corpuscular Hemoglobin 25.4 pg (28.0-32.0); Mean Corpuscular Volume 78.2 fL (80.0-100.0); Nucleated Red Blood Cells % 0.3 %
[2025-07-13 10:25] LABS: Chloride 108 mmol/L (98-107)
[2025-07-13 10:26] LABS: Glucose 142 mg/dL (74-106)
[2025-07-13 11:56] LABS: Urine Protein, UAD 3+ (Negative)
[2025-07-13] MEDS ORDERED: HYDROcodone-ACET 5/325MG TAB PO PRN (12:45)
[2025-07-13] MEDS ORDERED: ONDANSETRON HCL 4 MG/2 ML VIAL IV PRN (12:45)
[2025-07-13] MEDS ORDERED: MORPHINE SULFATE INJ 2 MG/ml SYRG IV PRN (12:45)
[2025-07-13] MEDS ORDERED: DOCUSATE SOD 100 MG CAP PO PRN (12:45)
[2025-07-13] MEDS ORDERED: NITROGLYCERIN 0.4 MG SL TAB SL PRN (12:45)
--- NOTE | 2025-07-13 13:19 | DVHHP2 ---
History of Present Illness Reason for Visit: Shortness of breath History of Present Illness Layla Lomax is a 40-year-old female with past medical history of CHF, hypertension, and asthma who came to the hospital for shortness of breath. Patient states she has been off her Lasix for about 1-2 weeks because her doctor took her off. She states the swelling has been worsening for about 1 week as well as the shortness of breath. She came to the hospital due the worsening shortness of breath, extremity swelling and pain. Patient's last ECHO here was in November 2024 that showed an EF of 30% and valvular disease. Patient states she is not good about following up with cardiology as she should. Cardiovascular: CHF, HTN Past Surgical History: None Smoke: <1 pack per day ALCOHOL: heavy (had a small amount to drink yesterday. last heavy drinking was about 1 week ago) Drugs: Marijuana, Other (methamphetamines) Lives: Friends Domestic Violence: Neg Review of Systems Constitutional: No: Fever, Chills, Sweats, Weakness, Malaise, Other Eyes: No: Pain, Vision change, Conjunctivae inflammation, Eyelid inflammation, Other, Redness ENT: No: Ear pain, Ear discharge, Nose pain, Nose discharge, Nose congestion, Mouth pain, Mouth swelling, Throat pain, Throat swelling, Other Respiratory: Shortness of breath, SOB with excertion; No: Cough, Dry, Wheezing, Hemoptysis, Pleuritic Pain, Sputum, Wheezing, Other Cardiovascular: Chest Pain, Edema (and pain to bilateral lower and upper extremities); No: Palpitations, Orthopnea, Paroxysmal Noc. Dyspnea, Lt Headedness, Other Gastrointestinal: No: Nausea, Vomiting, Abdominal Pain, Diarrhea, Constipation, Melena, Hematochezia, Other Genitourinary: No Dysuria, No Frequency, No Incontinence, No Hematuria, No Retention, No Other Musculoskeletal: No: other, neck pain, shoulder pain, arm pain, back pain, hand pain, leg pain, foot pain Skin: No: Rash, Lesions, Jaundice, Bruising, Other Neurological: No: Weakness, Numbness, Incoordination, Change in speech, Confusion, Seizures, Other Allergies: Coded Allergies: Codeine (Verified Allergy, Unknown, 07/13/25) Medications Current Medications Medications Dose Ordered Sig/Kellen Route Start Time Stop Time Status Last Admin Dose Admin Acetaminophen/ Hydrocodone Bitart 1 tab Q4HP PRN PO 07/13/25 12:45 UNV Ondansetron HCl 4 mg Q4HP PRN IV 07/13/25 12:45 UNV Docusate Sodium 100 mg BIDPRN PRN PO 07/13/25 12:45 UNV Acetaminophen 650 mg Q6HP PRN PO 07/13/25 12:45 UNV Nitroglycerin 0.4 mg Q5MINP PRN SL 07/13/25 12:45 UNV Morphine Sulfate 2 mg Q30M PRN IV 07/13/25 12:45 UNV Carvedilol 12.5 mg BID PO 07/13/25 22:00 UNV Empaglifozin 10 mg DAILY PO 07/14/25 10:00 UNV Patient Own Medication 1 tab DAILY PO 07/14/25 10:00 UNV Exam Vital Signs Vital Signs Date Time Temp Pulse Resp B/P (MAP) Pulse Ox O2 Delivery O2 Flow Rate FiO2 07/13/25 08:06 108 07/13/25 07:37 97.7 20 157/117 96 97.7 General Appearance: Alert, Oriented X3, Cooperative, moderate distress HEENT: Atraumatic, PERRLA Respiratory: Other (Diminshied breath sounds) Cardiovascular: Normal S1, Normal S2, Other (ST) Abdominal: Normal bowel sounds, Soft Extremities: No clubbing, No cyanosis, Other (edema and pain to bilateral lower and upper extremities) Skin: No rashes, No breakdown, No significant lesion Neuro: Normal speech Psych/Mental Status: Mental status NL Labs/Xrays Labs Test 07/13/25 10:58 07/13/25 10:33 07/13/25 09:54 Range/Units Troponin I High Sensitivity 818 *H </=34 ng/L Urine Color Yellow Yellow Urine Clarity Turbid H Clear Urine pH 6.0 5.0-9.0 Urine Specific [place] 1.025 1.001-1.035 Urine Protein 3+ H Negative Urine Ketones Negative Negative Urine Blood 1+ H Negative /uL Urine Nitrite 2+ H Negative Urine Bilirubin 1+ H Negative Urine Urobilinogen Normal Negative mg/dL Urine Leukocyte Esterase Negative Negative /uL Urine RBC 3 0 - 4 /hpf Urine Microscopic WBC 6 H 0-5 /HPF Urine Squamous Epithelial Cells Few <5 /hpf Urine Bacteria Mod H None Seen /hpf Urine Mucus Few None Seen Urine Glucose Normal Normal mg/dL White Blood Count 10.1 4.4-10.8 10^3/uL Red Blood Count 6.35 H 4.0-5.20 10^6/uL Hemoglobin 16.1 12.2-16.2 g/dL Hematocrit 49.7 H 36.0-46.0 % Mean Corpuscular Volume 78.2 L 80.0-100.0 fL Mean Corpuscular Hemoglobin 25.4 L 28.0-32.0 pg Mean Corpuscular Hemoglobin Concent 32.5 32.0-36.0 g/dL Red Cell Distribution Width 19.4 H 11.8-14.3 % Platelet Count 181 140-450 10^3/uL Mean Platelet Volume 10.3 6.9-10.8 fL Neutrophils (%) (Auto) 73.7 37.0-80.0 % Lymphocytes (%) (Auto) 16.3 10.0-50.0 % Monocytes (%) (Auto) 8.4 0.0-12.0 % Eosinophils (%) (Auto) 1.5 0.0-7.0 % Basophils (%) (Auto) 0.1 0.0-2.0 % Neutrophils # (Auto) 7.4 1.6-8.6 10 ^3/uL Lymphocytes # (Auto) 1.6 0.4-5.4 10 ^3/uL Monocytes # (Auto) 0.8 0-1.3 10 ^3/uL Eosinophils # (Auto) 0.2 0-0.8 10 ^3/uL Basophils # (Auto) 0 0-0.2 10 ^3/uL Nucleated Red Blood Cells 0.3 % Sodium Level 139 136-145 mmol/L Potassium Level 3.9 3.5-5.1 mmol/L Chloride Level 108 H 98-107 mmol/L Carbon Dioxide Level 20 20-31 mmol/L Anion Gap 11 5-15 Blood Urea Nitrogen 10 9-23 mg/dL Creatinine 0.75 0.550-1.02 mg/dL Glomerular Filtration Rate Calc 103 >90 mL/min BUN/Creatinine Ratio 13.3 10.0-20.0 Serum Glucose 142 H 74-106 mg/dL Calcium Level 9.0 8.7-10.4 mg/dL B-Type Natriuretic Peptide 821.57 0-100 pg/mL XY CHEST PORTABLE, FINDINGS: Lines and tubes: None Cardiomediastinal silhouette: enlarged Pulmonary vasculature: prominent Lung expansion: normal Lung airspace: normal Lung interstitium: normal Pleura: normal Pneumothorax: no Bones: Unremarkable Other: no IMPRESSION: Cardiomegaly with pulmonary vascular congestion. SEPSIS Sepsis Screen Date sepsis recognized/suspect: Jul 13, 2025 Time Sepsis recognized/suspect: 07 Recent Procedure: No On Antibiotic Therapy: No Respiratory Rate >20: No Heart Rate >90: Yes Temp<36 C (96.8 F) or >38.3 C: No SBP <90 or MAP <65 mmHG: No New Acute Mental Status Change: No Is the patient on CPAP, BIPAP,: No Physician Orders Electrocardigram (07/13/25 08:47) Electrocardigram (07/13/25 10:47) Chest Portable (07/13/25 08:08) Troponin-I Hs (07/13/25 11:08) Admit (07/13/25 12:43) Code Status (07/13/25 12:43) Hydrocodone-Acet 5/325mg Tab ([place] 5/32 (07/13/25 12:45) Ondansetron Hcl (Zofran) (07/13/25 12:45) Docusate Sodium Capsule (Colace Capsule) (07/13/25 12:45) Complete Blood Count (07/14/25 04:00) Comprehensive Metabolic Panel (07/14/25 04:00) Cardiac Diet-2gna,Lofat,Lochol (07/13/25 Lunch) Condition: Serious (07/13/25 12:43) Acetaminophen Tablet (Tylenol Tablet) (07/13/25 12:45) Nitroglycerin Sublingual (Ntrostat Subli (07/13/25 12:45) Morphine Sulfate Injection (07/13/25 12:45) Stat Ekg For Chest Pain (07/13/25 12:43) Notify Md Of Changes From Base (07/13/25 12:43) Form Setter Steel Pan Forms For 24 Hours (07/13/25 12:43) Emergency Dysrhythmia Protocol (07/13/25 12:43) Rhythm Strips Once Every Shift (07/13/25 12:43) Oxygen By Nasal Cannula (07/13/25 12:43) Drug Screen (07/13/25 12:43) Carvedilol Tablet (Coreg Tablet) (07/13/25 22:00) Empagliflozin (Jardiance) (07/14/25 10:00) (Nf) Atorvastatin Calcium (07/14/25 10:00) Ceftriaxone Ivpb Rocephin (07/14/25 09:00) Ceftriaxone Ivpb Rocephin (07/13/25 13:00) Folic Acid Tablet (07/13/25 13:00) Folic Acid Tablet (07/14/25 10:00) Thiamine Tab (07/13/25 13:00) Thiamine Tab (07/14/25 10:00) Multiple Vitamin Tablet (Mvi Tab) (07/13/25 13:00) Multiple Vitamin Tablet (Mvi Tab) (07/14/25 10:00) Furosemide Injection (Lasix Injection) (07/13/25 18:00) Vital Signs Date Time Temp Pulse Resp B/P (MAP) Pulse Ox O2 Delivery O2 Flow Rate FiO2 07/13/25 08:06 108 07/13/25 07:52 105 07/13/25 07:37 97.7 116 20 157/117 96 97.7 Laboratory Tests Test 07/13/25 09:54 White Blood Count 10.1 10^3/uL (4.4-10.8) Assessment/Plan Assessment/Plan Assessment: Elevated troponin, CHF exacerbation, Fluid overload, Complicated UTI, Cardiomegaly, Pulmonary vascular congestion, Hypertension, ETOH dependance, Illicit drug use, New diabetic, Plan: Admit to Tele, Cardiology consult, ECHO, IV Lasix BID, IV antibiotics, Fluid restriction, Manage/Monitor electrolytes closely, Supplemental vitamins for ETOH dependance, Accu checks Q AC&HS with sliding scale, Home medications reconciled, Plan discussed with: Patient My Orders Orders - DALLIN VOSS Procedure Category Date Status Time Admit ADMIT 07/13/25 Transmitted 12:43 Code Status CODE 07/13/25 Transmitted 12:43 Hydrocodone-Acet PHA 07/13/25 Logged 5/325mg Tab ([place] 12:45 Ondansetron Hcl PHA 07/13/25 Logged (Zofran) 12:45 Docusate Sodium PHA 07/13/25 Logged Capsule (Colace 12:45 Complete Blood Count LAB 07/14/25 Verified 04:00 Comprehensive LAB 07/14/25 Verified Metabolic Panel 04:00 Cardiac DIET 07/13/25 Transmitted Diet-2gna,Lofat,Lochol Lunch Condition: Serious LADAN 07/13/25 In Process 12:43 Acetaminophen Tablet PHA 07/13/25 Logged (Tylenol Tablet) 12:45 Nitroglycerin PHA 07/13/25 Logged Sublingual (Ntrostat 12:45 Morphine Sulfate PHA 07/13/25 Logged Injection 12:45 Stat Ekg For Chest LADAN 07/13/25 In Process Pain 12:43 Notify Md Of Changes LADAN 07/13/25 In Process From Base 12:43 Form Setter Steel Pan Forms For LADAN 07/13/25 In Process 24 Hours 12:43 Emergency Dysrhythmia [facility] 07/13/25 In Process Protocol 12:43 Rhythm Strips Once [facility] 07/13/25 In Process Every Shift 12:43 Oxygen By Nasal RT 07/13/25 Transmitted Cannula 12:43 Drug Screen LAB 07/13/25 Logged 12:43 Carvedilol Tablet PHA 07/13/25 Logged (Coreg Tablet) 22:00 Empagliflozin PHA 07/14/25 Logged (Jardiance) 10:00 (Nf) Atorvastatin PHA 07/14/25 Logged Calcium 10:00 Ceftriaxone Ivpb PHA 07/14/25 Transmitted Rocephin 09:00 Ceftriaxone Ivpb PHA 07/13/25 Transmitted Rocephin 13:00 Folic Acid Tablet PHA 07/13/25 Transmitted 13:00 Folic Acid Tablet PHA 07/14/25 Transmitted 10:00 Thiamine Tab PHA 07/13/25 Transmitted 13:00 Thiamine Tab PHA 07/14/25 Transmitted 10:00 Multiple Vitamin PHA 07/13/25 Transmitted Tablet (Mvi Tab) 13:00 Multiple Vitamin PHA 07/14/25 Transmitted Tablet (Mvi Tab) 10:00 Furosemide Injection PHA 07/13/25 Transmitted (Lasix Injection) 18:00 Date of Service: Jul 13, 2025 Billing Provider: DALLIN VOSS Common Visit Codes: [id number] INP/OBS CARE (HIGH) DALLIN VOSS Jul 13, 2025 13:19
[2025-07-13 14:39] LABS: Triglycerides 145.0 mg/dL (< 150)
[2025-07-13 14:40] LABS: Magnesium 1.7 mg/dL (1.6-2.6)
[2025-07-13 14:41] LABS: Cholesterol 164.0 mg/dL (< 200)
[2025-07-13 14:46] LABS: HDL Cholesterol 28.0 mg/dL (40-59)
--- NOTE | 2025-07-13 14:46 | DVHINCON2 ---
Date Seen: Jul 13, 2025 Referring Physician BELLO Glez Reason for Consultation Elevated troponin History of Present Illness This is a 40-year-old female patient who presents to the emergency room with chief complaint of worsening shortness of breath and bilateral lower extremity edema for two weeks. The patient admits that she has been noncompliant with her medications for over two months. Cardiology has been consulted at this time for elevated troponin level. Initial twelve lead electrocardiogram reveals sinus tachycardia with nonspecific ST-T segment changes to lateral leads. Initial troponin level of 804ng/L with up trend and current peak level at 1064ng/L. Initial BNP level of 821.57pg/mL. Significant past medical history includes congestive heart failure, hypertension, dyslipidemia, type 2 diabetes mellitus, polysubstance abuse, and obesity. 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 Past Medical History Past medical history reviewed. No other significant than mentioned above. Past Surgical History Denies any previous surgeries Family History: Diabetes mellitus G8 MOTHER G8 FATHER Family History Family history reviewed. Social History Patient admits to recent methamphetamine use about one week ago Patient has a 10 pack-year history, smokes approximately half a pack per day Patient admits to daily vodka and beer intake Allergies: Coded Allergies: Codeine (Verified Allergy, Unknown, 07/13/25) Home Meds Active Scripts Sacubitril-Valsartan (Entresto 24-26 mg) 1 Tab Tab, 1 TAB PO BID for 30 Days, #60 TAB Prov:HALLIE GEORGE MD 11/12/24 Spironolactone (Aldactone) 25 Mg Tab, 25 MG PO DAILY for 90 Days, #90 TAB Prov:HALLIE GEORGE MD 11/12/24 Furosemide (Furosemide) 40 Mg Tab, 40 MG PO DAILY for 30 Days, #30 TAB Prov:HALLIE GEORGE MD 11/12/24 Empagliflozin (Jardiance) 10 Mg Tab, 10 MG PO DAILY for 90 Days, #90 TAB Prov:HALLIE GEORGE MD 11/12/24 Carvedilol (Carvedilol) 12.5 Mg Tab, 1 TAB PO BID, #60 TAB 0 Refills Prov:HALLIE GEORGE MD 11/12/24 Atorvastatin Calcium (ATORVASTATIN CALCIUM) 80 Mg Tab, 1 TAB PO DAILY for 90 Days, #90 TAB 0 Refills Prov:HALLIE GEORGE MD 11/12/24 Discontinued Scripts Nitrofurantoin Monohydrate Mac (Macrobid) 100 Mg Cap, 100 MG PO BID for 5 Days, #10 CAP Prov:HALLIE GEORGE MD 11/12/24 Home Meds Home medications reviewed. Current Medications Current Medications Medications (Trade) Dose Ordered Sig/Kellen Route PRN Reason Start Time Stop Time Status Last Admin Acetaminophen/ Hydrocodone Bitart ([place] 5/325MG Tab) 1 tab Q4HP PRN PO MODERATE PAIN (4-6 PAIN SCALE) 07/13/25 12:45 Hold Ondansetron HCl (Zofran) 4 mg Q4HP PRN IV NAUSEA / VOMITING 07/13/25 12:45 Docusate Sodium (Colace Capsule) 100 mg BIDPRN PRN PO FOR CONSTIPATION 07/13/25 12:45 Acetaminophen (Tylenol Tablet) 650 mg Q6HP PRN PO PAIN SCALE 1-3 OR TEMP>100.4 07/13/25 12:45 Nitroglycerin (Ntrostat Sublingual) 0.4 mg Q5MINP PRN SL FOR CHEST PAIN 07/13/25 12:45 Morphine Sulfate 2 mg Q30M PRN IV FOR CHEST PAIN 07/13/25 12:45 Hold Carvedilol (Coreg Tablet) 12.5 mg BID PO 07/13/25 22:00 Empaglifozin (Jardiance) 10 mg DAILY PO 07/14/25 10:00 Patient Own Medication 1 tab DAILY PO 07/14/25 10:00 UNV Ceftriaxone Sodium 50 ml @ 100 mls/hr DAILY@09 IV 07/14/25 09:00 Folic Acid 1 mg DAILY PO 07/14/25 10:00 Thiamine HCl 100 mg DAILY PO 07/14/25 10:00 Multivitamins (Mvi Tab) 1 tab DAILY PO 07/14/25 10:00 Furosemide (Lasix Injection) 40 mg BIDD IV 07/13/25 18:00 Atorvastatin Calcium (Lipitor) 80 mg HS PO 07/13/25 22:00 Review of Systems Constitutional: No symptom reported Ears, Nose, & Throat: No symptom reported Eyes: No symptom reported Neurological: No symptoms reported Pulmonary/Respiratory: Shortness of breath Cardiovascular: Bilateral lower extremity edema Gastrointestinal: No symptom reported Genitourinary: No symptom reported Musculoskeletal: No symptom reported Skin: No symptom reported Psychiatric: No symptom reported Endocrine: No symptom reported Hematologic/Lymphatic: No symptom reported Vital Signs Vital Signs Date Time Temp Pulse Resp B/P (MAP) Pulse Ox O2 Delivery O2 Flow Rate FiO2 07/13/25 08:06 108 07/13/25 07:37 97.7 20 157/117 96 97.7 Physical Exam General Appearance: Cooperative. Obesity Pulmonary/Respiratory: Clear, bilateral breaths sounds. Cardiovascular/Chest: Regular rate and rhythm. Peripheral Pulses: 2+ Radial (R). 2+ Radial (L). 2+ Pedal (R). 2+ Pedal (L) Abdominal Exam: Normal bowel sounds. Ankle Exam: 3+ pitting edema Lower extremities: 3+ pitting edema Neuro/Mental Status: A/OX4, coherent. Thoughts/Psych: Normal thought pattern. Appropriate mood and affect. Good ju dgment and insight. Appearance: No acute distress. Skin Exam: Normal inspection. Normal color. Warm and dry. Labs/Diagnostic Data Labs Test 07/13/25 13:13 07/13/25 10:33 07/13/25 09:54 Range/Units Troponin I High Sensitivity 1064 *H </=34 ng/L Urine Color Yellow Yellow Urine Clarity Turbid H Clear Urine pH 6.0 5.0-9.0 Urine Specific [place] 1.025 1.001-1.035 Urine Protein 3+ H Negative Urine Ketones Negative Negative Urine Blood 1+ H Negative /uL Urine Nitrite 2+ H Negative Urine Bilirubin 1+ H Negative Urine Urobilinogen Normal Negative mg/dL Urine Leukocyte Esterase Negative Negative /uL Urine RBC 3 0 - 4 /hpf Urine Microscopic WBC 6 H 0-5 /HPF Urine Squamous Epithelial Cells Few <5 /hpf Urine Bacteria Mod H None Seen /hpf Urine Mucus Few None Seen Urine Glucose Normal Normal mg/dL White Blood Count 10.1 4.4-10.8 10^3/uL Red Blood Count 6.35 H 4.0-5.20 10^6/uL Hemoglobin 16.1 12.2-16.2 g/dL Hematocrit 49.7 H 36.0-46.0 % Mean Corpuscular Volume 78.2 L 80.0-100.0 fL Mean Corpuscular Hemoglobin 25.4 L 28.0-32.0 pg Mean Corpuscular Hemoglobin Concent 32.5 32.0-36.0 g/dL Red Cell Distribution Width 19.4 H 11.8-14.3 % Platelet Count 181 140-450 10^3/uL Mean Platelet Volume 10.3 6.9-10.8 fL Neutrophils (%) (Auto) 73.7 37.0-80.0 % Lymphocytes (%) (Auto) 16.3 10.0-50.0 % Monocytes (%) (Auto) 8.4 0.0-12.0 % Eosinophils (%) (Auto) 1.5 0.0-7.0 % Basophils (%) (Auto) 0.1 0.0-2.0 % Neutrophils # (Auto) 7.4 1.6-8.6 10 ^3/uL Lymphocytes # (Auto) 1.6 0.4-5.4 10 ^3/uL Monocytes # (Auto) 0.8 0-1.3 10 ^3/uL Eosinophils # (Auto) 0.2 0-0.8 10 ^3/uL Basophils # (Auto) 0 0-0.2 10 ^3/uL Nucleated Red Blood Cells 0.3 % Sodium Level 139 136-145 mmol/L Potassium Level 3.9 3.5-5.1 mmol/L Chloride Level 108 H 98-107 mmol/L Carbon Dioxide Level 20 20-31 mmol/L Anion Gap 11 5-15 Blood Urea Nitrogen 10 9-23 mg/dL Creatinine 0.75 0.550-1.02 mg/dL Glomerular Filtration Rate Calc 103 >90 mL/min BUN/Creatinine Ratio 13.3 10.0-20.0 Serum Glucose 142 H 74-106 mg/dL Calcium Level 9.0 8.7-10.4 mg/dL B-Type Natriuretic Peptide 821.57 0-100 pg/mL Assessment NSTEMI Acute on chronic decompensated HFrEF, NYHA class III Hypertension Dyslipidemia Type 2 diabetes mellitus Polysubstance abuse Obesity Medical noncompliance Dietary indiscretions Plan/Recommendation We will continue with the following plan/recommendations (Dr. Jefferson): * Transthoracic echocardiogram to evaluate cardiac function * Previous transthoracic echocardiogram from 11/10/2024 reveals EF 30% * Initiate guideline directed medical therapy for CHF as tolerated * Initiate beta-anjali once patient has been properly diuresed * Strict intake and output, daily weights, maintain fluid restriction * Aggressive diuresis as tolerated * Close Cardiac surveillance * Trend troponin level * Risk factor modifications, counseled * Adherence to medication regimen * Cessation of substance use Case discussed with . The patient denies any chest pain at time of assessment. Troponin level noted to be elevated and current peak level at 1064ng/L. Given the patient's poor medical compliance and polysubstance abuse, she is not an ideal candidate for invasive cardiac workup at this time. We will proceed with conservative medical management at this time. Thank you for allowing us to care for this patient. Please call with any questions or concerns. Critical care time spent: 44 minutes This medical document was created using an electronic medical record system with voice recognition software and computerized dictation system. Although this document has been carefully reviewed, there might still be some phonetic and typographical errors. Occasional wrong-word or ``sound-alike substitutions may have occurred due to the inherent limitations of voice recognition software. These areas are purely typographical due to imperfections of the software programs and do not reflect any compromise in the patient's medical care. Please read the chart carefully and recognize, using context, where these substitutions have occurred. Plan discussed with: Patient NYHA Physical activity limitations: Class3(Marked) ordinary (activity causes symtoms) Date of Service: Jul 13, 2025 Billing Provider: CARMINA FARLEY Cardiology Common Codes: [id number] INP/OBS CARE (High) Cardiology Consultation Codes: [id number] CONSULT <45MIN CARMINA FARLEY Jul 13, 2025 14:46
[2025-07-13 15:30] VITALS: PULSE 101; RESP 22; O2SAT 92
[2025-07-13] MEDS ORDERED: DEXTROSE (50%) 50ML SYRG IV PRN (15:45)
[2025-07-13] MEDS: cefTRIAXone 1GM/50ML D5W 50 ML IV ONE (16:56)
[2025-07-13] MEDS: FUROSEMIDE 40 MG/4 ML VIAL IV ONE (16:58)
[2025-07-13] MEDS: ACCU-CHEK COMFORT CURVE STRIP VI SCH (17:35)
[2025-07-13] MEDS: InsuLIN REG 1unit/0.01ml Soln (100units/ml) SC SCH ×2 (17:43→21:39)
[2025-07-13] MEDS: MULTIPLE VITAMIN TAB PO ONE (17:50)
[2025-07-13] MEDS: FOLIC ACID 1 MG TAB PO ONE (17:50)
[2025-07-13] MEDS: THIAMINE HCL 100 MG TAB PO ONE (17:50)
[2025-07-13] MEDS: MAGNESIUM SULFATE 1GM/100ML 100 ML IV SCH (17:56)
[2025-07-13] MEDS: FUROSEMIDE 40 MG/4 ML VIAL IV SCH (18:00)
--- NOTE | 2025-07-13 18:44 | DVHSR ---
APPROVED REPORT EXAM: Two-dimensional and M-mode echocardiogram with Doppler and color Doppler. Blood Pressure: 157/117 mmHg INDICATION Elevated troponin CHF RISK FACTORS Obesity: Height: 5'3", Weight: 200 DIMENSIONS LVDd5.6 (3.8-5.7cm)LA (2D)4.5 (1.9-4.0cm)Aortic Root3.0 (2.0-3.7cm) LVDs5.3 (2.5-4.0cm)LA (MM) (1.9-4.0cm)Aortic Cusp Exc1.7 (1.5-2.0cm) EF (%) 20.0 (55-70%)Rt. Atrium4.1 (1.9-4.0cm)Asc. Aorta cm IVSd1.1 (0.7-1.1cm)RV (D) (1.8-2.4cm) PWd1.4 (0.7-1.1cm) Mitral Valve MitralMitral Stenosis E wave1.51m/sMV Mean GR.mmHg E/A ratio0.02D MVAcm2 Aortic Valve Aortic ValveAortic Stenosis V10.76m/Tobias Mean GR.2mmHg V21.06m/Tobias Peak GR.4mmHg LVOT Diameter1.9 (1.8-2.4cm)Doppler AVA2.03cm2 Pulmonic Valve V20.98m/s Tricuspid Valve TR Velocity3.71m/s [id number] Conclusion DILATED ALL CARDIAC CHAMBERS SEVERE LV AND RV HYPOKINESIS LV EF IS IN RANGE OF ONLY 20% SEVERE MITRAL AND TRICUSPID VALVE REGURGITATION NORMAL VALVES MILD POSTERIOR PERICARDIAL EFFUSION RVSP IS 63 MM OF HG AND IS VERY HIGH CRITICAL PULMONARY HYPERTENSION
[2025-07-13 20:00] VITALS: PULSE 113
[2025-07-13 20:41] VITALS: PULSE 104; RESP 20; O2SAT 93
[2025-07-13] MEDS: ATORVASTATIN 20 MG TAB PO SCH (21:39)
[2025-07-13] MEDS: SACUBITRIL-VALSARTAN 24mg/26mg TAB PO SCH (21:39)
[2025-07-13] MEDS ORDERED: CARVEDILOL 12.5 MG TAB PO SCH (22:00)
[2025-07-13] MEDS ORDERED: ENOXAPARIN SOD 100 MG/1 ML SYRINGE SC SCH (22:00)
--- NOTE | 2025-07-13 23:39 | DVHINCON2 ---
Date Seen: Jul 13, 2025 Referring Physician BELLO Glez Reason for Consultation Elevated troponin History of Present Illness This is a 40-year-old female patient with a PMH of congestive heart failure, hypertension, dyslipidemia, type 2 diabetes mellitus, polysubstance abuse, and obesity who presents to the ED with complaint of worsening shortness of breath and bilateral lower extremity edema for two weeks. The patient admits that she has been noncompliant with her medications for over two months. Cardiology has been consulted at this time for elevated troponin level. Initial twelve lead electrocardiogram reveals sinus tachycardia with nonspecific ST-T segment changes to lateral leads. Initial troponin level of 804ng/L with up trend and current peak level at 1064ng/L. Initial BNP level of 821.57pg/mL. 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 Chest x-ray shows cardiomegaly with pulmonary vascular congestion. Past Medical History Past medical history reviewed. No other significant than mentioned above. Past Surgical History Denies any previous surgeries Family History: Diabetes mellitus G8 MOTHER G8 FATHER Allergies: Coded Allergies: Codeine (Verified Allergy, Unknown, 07/13/25) Home Meds Active Scripts Sacubitril-Valsartan (Entresto 24-26 mg) 1 Tab Tab, 1 TAB PO BID for 30 Days, #60 TAB Prov:HALLIE GEORGE MD 11/12/24 Spironolactone (Aldactone) 25 Mg Tab, 25 MG PO DAILY for 90 Days, #90 TAB Prov:HALLIE GEORGE MD 11/12/24 Furosemide (Furosemide) 40 Mg Tab, 40 MG PO DAILY for 30 Days, #30 TAB Prov:HALLIE GEORGE MD 11/12/24 Empagliflozin (Jardiance) 10 Mg Tab, 10 MG PO DAILY for 90 Days, #90 TAB Prov:HALLIE GEORGE MD 11/12/24 Carvedilol (Carvedilol) 12.5 Mg Tab, 1 TAB PO BID, #60 TAB 0 Refills Prov:HALLIE GEORGE MD 11/12/24 Atorvastatin Calcium (ATORVASTATIN CALCIUM) 80 Mg Tab, 1 TAB PO DAILY for 90 Days, #90 TAB 0 Refills Prov:HALLIE GEORGE MD 11/12/24 Discontinued Scripts Nitrofurantoin Monohydrate Mac (Macrobid) 100 Mg Cap, 100 MG PO BID for 5 Days, #10 CAP Prov:HALLIE GEORGE MD 11/12/24 Current Medications Current Medications Medications (Trade) Dose Ordered Sig/Kellen Route PRN Reason Start Time Stop Time Status Last Admin Acetaminophen/ Hydrocodone Bitart ([place] 5/325MG Tab) 1 tab Q4HP PRN PO MODERATE PAIN (4-6 PAIN SCALE) 07/13/25 12:45 Hold Ondansetron HCl (Zofran) 4 mg Q4HP PRN IV NAUSEA / VOMITING 07/13/25 12:45 Docusate Sodium (Colace Capsule) 100 mg BIDPRN PRN PO FOR CONSTIPATION 07/13/25 12:45 Acetaminophen (Tylenol Tablet) 650 mg Q6HP PRN PO PAIN SCALE 1-3 OR TEMP>100.4 07/13/25 12:45 Nitroglycerin (Ntrostat Sublingual) 0.4 mg Q5MINP PRN SL FOR CHEST PAIN 07/13/25 12:45 Morphine Sulfate 2 mg Q30M PRN IV FOR CHEST PAIN 07/13/25 12:45 Hold Carvedilol (Coreg Tablet) 12.5 mg BID PO 07/13/25 22:00 07/13/25 14:45 DC Empaglifozin (Jardiance) 10 mg DAILY PO 07/14/25 10:00 Patient Own Medication 1 tab DAILY PO 07/14/25 10:00 UNV Ceftriaxone Sodium 50 ml @ 100 mls/hr DAILY@09 IV 07/14/25 09:00 Folic Acid 1 mg DAILY PO 07/14/25 10:00 Thiamine HCl 100 mg DAILY PO 07/14/25 10:00 Multivitamins (Mvi Tab) 1 tab DAILY PO 07/14/25 10:00 Furosemide (Lasix Injection) 40 mg BIDD IV 07/13/25 18:00 Atorvastatin Calcium (Lipitor) 80 mg HS PO 07/13/25 22:00 07/13/25 21:39 Sacubitril/ Valsartan (Entresto 24-26 Mg tab) 1 tab BID PO 07/13/25 22:00 07/13/25 21:39 Spironolactone (Aldactone) 25 mg DAILY PO 07/14/25 10:00 Enoxaparin Sodium (Lovenox) 90 mg Q12HR SC 07/13/25 22:00 07/13/25 15:27 DC Magnesium Sulfate/ Dextrose 100 ml @ 100 mls/hr Q1HR IV 07/13/25 16:00 07/13/25 17:59 DC 07/13/25 19:22 Diagnostic Test (Pha) (Accu-Chek Comfort Curve T) 1 strip ACHS 07/13/25 17:00 07/13/25 21:40 Insulin Human Regular (InsuLIN R) HS SC 07/13/25 22:00 07/13/25 21:39 Insulin Human Regular (InsuLIN R) AC SC 07/13/25 17:00 Dextrose 50 ml UD PRN IV Blood Sugar LESS THAN 60 07/13/25 15:45 Review of Systems Constitutional: No symptom reported Ears, Nose, & Throat: No symptom reported Eyes: No symptom reported Neurological: No symptoms reported Pulmonary/Respiratory: Shortness of breath Cardiovascular: Bilateral lower extremity edema Gastrointestinal: No symptom reported Genitourinary: No symptom reported Musculoskeletal: No symptom reported Skin: No symptom reported Psychiatric: No symptom reported Endocrine: No symptom reported Hematologic/Lymphatic: No symptom reported Vital Signs Vital Signs Date Time Temp Pulse Resp B/P (MAP) Pulse Ox O2 Delivery O2 Flow Rate FiO2 07/13/25 22:40 98.1 118 20 167/120 (136) 99 98.1 07/13/25 20:41 Nasal Cannula* 2 28 Physical Exam GENERAL: Alert and oriented x 3. No acute distress. Obesity. EYES: PERRL, EOMI. Anicteric. HENT: Moist mucous membranes. LUNGS: Clear to auscultation bilaterally. CARDIOVASCULAR: Regular rate and rhythm. ABDOMEN: Soft, non-tender and non-distended. EXTREMITIES: 3+ pitting edema. NEUROLOGIC: No focal neurological deficits. SKIN: Warm, dry. Labs/Diagnostic Data Labs Test 07/13/25 21:23 07/13/25 21:21 07/13/25 10:33 07/13/25 09:54 Range/Units Troponin I High Sensitivity 1129 *H </=34 ng/L POC Glucose 159 H 70-106 mg/dl Urine Color Yellow Yellow Urine Clarity Turbid H Clear Urine pH 6.0 5.0-9.0 Urine Specific Bradford 1.025 1.001-1.035 Urine Protein 3+ H Negative Urine Ketones Negative Negative Urine Blood 1+ H Negative /uL Urine Nitrite 2+ H Negative Urine Bilirubin 1+ H Negative Urine Urobilinogen Normal Negative mg/dL Urine Leukocyte Esterase Negative Negative /uL Urine RBC 3 0 - 4 /hpf Urine Microscopic WBC 6 H 0-5 /HPF Urine Squamous Epithelial Cells Few <5 /hpf Urine Bacteria Mod H None Seen /hpf Urine Mucus Few None Seen Urine Glucose Normal Normal mg/dL White Blood Count 10.1 4.4-10.8 10^3/uL Red Blood Count 6.35 H 4.0-5.20 10^6/uL Hemoglobin 16.1 12.2-16.2 g/dL Hematocrit 49.7 H 36.0-46.0 % Mean Corpuscular Volume 78.2 L 80.0-100.0 fL Mean Corpuscular Hemoglobin 25.4 L 28.0-32.0 pg Mean Corpuscular Hemoglobin Concent 32.5 32.0-36.0 g/dL Red Cell Distribution Width 19.4 H 11.8-14.3 % Platelet Count 181 140-450 10^3/uL Mean Platelet Volume 10.3 6.9-10.8 fL Neutrophils (%) (Auto) 73.7 37.0-80.0 % Lymphocytes (%) (Auto) 16.3 10.0-50.0 % Monocytes (%) (Auto) 8.4 0.0-12.0 % Eosinophils (%) (Auto) 1.5 0.0-7.0 % Basophils (%) (Auto) 0.1 0.0-2.0 % Neutrophils # (Auto) 7.4 1.6-8.6 10 ^3/uL Lymphocytes # (Auto) 1.6 0.4-5.4 10 ^3/uL Monocytes # (Auto) 0.8 0-1.3 10 ^3/uL Eosinophils # (Auto) 0.2 0-0.8 10 ^3/uL Basophils # (Auto) 0 0-0.2 10 ^3/uL Nucleated Red Blood Cells 0.3 % Sodium Level 139 136-145 mmol/L Potassium Level 3.9 3.5-5.1 mmol/L Chloride Level 108 H 98-107 mmol/L Carbon Dioxide Level 20 20-31 mmol/L Anion Gap 11 5-15 Blood Urea Nitrogen 10 9-23 mg/dL Creatinine 0.75 0.550-1.02 mg/dL Glomerular Filtration Rate Calc 103 >90 mL/min BUN/Creatinine Ratio 13.3 10.0-20.0 Serum Glucose 142 H 74-106 mg/dL Hemoglobin A1c 7.7 H <5.7 % A1C Calcium Level 9.0 8.7-10.4 mg/dL Magnesium Level 1.7 1.6-2.6 mg/dL B-Type Natriuretic Peptide 821.57 0-100 pg/mL Triglycerides Level 145 < 150 mg/dL Cholesterol Level 164 < 200 mg/dL LDL Cholesterol 128 H < 100 mg/dL HDL Cholesterol 28 L 40-59 mg/dL Thyroid Stimulating Hormone (TSH) 4.65 0.55-4.78 uIU/mL Assessment NSTEMI. Acute on chronic decompensated HFrEF, NYHA class III. Hypertension. Dyslipidemia. Type 2 diabetes mellitus. Polysubstance abuse. Obesity. Medical noncompliance. Dietary indiscretions. Plan/Recommendation I agree with your ongoing assessment and care of plan. Patient has been seen by Beth Franklin NP on my behalf. We have discussed the plan with the patient. The patient denies any chest pain at time of assessment. Troponin level noted to be elevated and current peak level at 1064ng/L. Given the patient's poor medical compliance and polysubstance abuse, she is not an ideal candidate for invasive cardiac workup at this time. We will proceed with conservative medical management at this time. Transthoracic echocardiogram to evaluate cardiac function. Previous transthoracic echocardiogram from 11/10/2024 reveals EF 30%. Initiate guideline directed medical therapy for CHF as tolerated. Initiate beta-anjali once patient has been properly diuresed. Strict intake and output, daily weights, maintain fluid restriction. Aggressive diuresis as tolerated. Close Cardiac surveillance. Trend troponin level. Risk factor modifications, counseled. Adherence to medication regimen. Cessation of substance use. Additional plan as per the hospital course. Plan discussed with: Patient NYHA Physical activity limitations: Class3(Marked) ordinary Date of Service: Jul 13, 2025 Billing Provider: WILLIAM FONTENOT MD Cardiology Common Codes: [id number] INP/OBS CARE (High) Cardiology Consultation Codes: [id number] CONSULT <45MIN WILLIAM FONTENOT MD Jul 13, 2025 23:39
[2025-07-13 23:40] VITALS: BP 151/113; PULSE 96; RESP 19; TEMP 98.3; O2SAT 93
[2025-07-14] VITALS (9 sets, daily range): BP systolic 147–158; BP diastolic 100–109; PULSE 87–113; RESP 16–20; TEMP 97.7–98.6; O2SAT 90–98
[2025-07-14 07:45] LABS: Nucleated Red Blood Cells % 0.4 %
[2025-07-14 07:47] LABS: Hematocrit 52.8 % (36.0-46.0); Hemoglobin 17.2 g/dL (12.2-16.2); Mean Corpuscular Hemoglobin 25.6 pg (28.0-32.0); Mean Corpuscular Volume 78.6 fL (80.0-100.0)
[2025-07-14 08:33] LABS: Alanine Aminotransferase 28 U/L (7-40); Albumin 3.6 g/dL (3.2-4.8); Anion Gap 9 (5-15); BUN/Creatinine Ratio 13.4 (10.0-20.0); Blood Urea Nitrogen 11 mg/dL (9-23); Carbon Dioxide 25 mmol/L (20-31); Chloride 105 mmol/L (98-107); Magnesium 1.8 mg/dL (1.6-2.6); Sodium 139 mmol/L (136-145); Total Protein 6.1 g/dL (5.7-8.2)
[2025-07-14 08:36] LABS: Alkaline Phosphatase 186 U/L (46-116); Bilirubin, Total 2.4 mg/dL (0.2-1.0); Calcium 8.5 mg/dL (8.7-10.4); Glucose 138 mg/dL (74-106); Potassium 3.4 mmol/L (3.5-5.1)
[2025-07-14] MEDS: POTASSIUM EFFERVESENT TAB 25 MEQ PO ONE (09:40)
[2025-07-14] MEDS: cefTRIAXone 1GM/50ML D5W 50 ML IV SCH (09:40)
[2025-07-14] MEDS: FOLIC ACID 1 MG TAB PO SCH (09:41)
[2025-07-14] MEDS: EMPAGLIFLOZIN 10 MG TAB PO SCH (09:41)
[2025-07-14] MEDS: MULTIPLE VITAMIN TAB PO SCH (09:41)
[2025-07-14] MEDS: THIAMINE HCL 100 MG TAB PO SCH (09:42)
[2025-07-14] MEDS: SPIRONOLACTONE 25 MG TAB PO SCH (09:42)
[2025-07-14] MEDS ORDERED: PATIENTS OWN MEDICATION (Atorvastatin Calcium 1 TAB) PO SCH (10:00)
--- NOTE | 2025-07-14 10:51 | DVHPNRES ---
Progress Note Date Seen: Jul 14, 2025 Resident Creating Document: CHASE OMRE RESIDENT Medical Necessity Reason Pt with a Central, PICC or Fol: No Subjective Review of Systems Patient is a 40-year-old female with past medical history of , hypotension, diabetes, asthma, who came to the ED with chief complaints of shortness of breath and bilateral leg swelling since 2 weeks. Patient states that she has been off her medications for about 2 weeks as her meds ran out 2 weeks ago because she does not have a primary care doctor and goes to the ED every time she needs medication. patient is not following up with hand upper and bottom lacer. On arrival troponin was 804 and is up trending. BNP 821. past surgical history: Denies Personal history: Smokes less than a pack per day, drinks heavily almost every day, uses weed gummies, smokes methamphetamine lives with: friends 07/14/2025 Patient seen in [facility]. Patient is alert x3, in no distress, is on room air, denies being on home oxygen. she states that her shortness of breath, swelling has increased since 2 weeks. chest x-ray shows cardiomegaly with pulmonary vascular congestion. Echo shows dilated all cardiac chambers, severe LV and RV hypokinesis, LVEF of only 20%, severe mitral and tricuspid valve regurgitation. mild posterior pericardial effusion, or we SP is 63 mm of Hg, critical pulmonary hypotension. Constitutional: Denies weight loss, fever and chills. HEENT: Denies changes in vision and hearing. Respiratory: Has shortness of breath Cardiovascular: Denies chest discomfort or palpitations GI: Denies any abdominal pain. : Denies dysuria and urinary frequency. Musculoskeletal: Denies myalgias and joint pain Skin: Denies rash and pruritus. Neurological: Denies dizziness, headache, vision or hearing problems Objective vital signs Vital Sign Date Time Temp Pulse Resp B/P (MAP) Pulse Ox O2 Delivery O2 Flow Rate FiO2 07/14/25 09:00 97.7 108 20 149/105 (120) 96 97.7 07/14/25 02:55 Nasal Cannula* 2 28 Total Intake and Output 07/13/25 07/13/25 07/14/25 15:00 23:00 07:00 Intake Total 150 ml 440 ml Balance 150 ml 440 ml medications Current Medications Medications Dose Ordered Sig/Kellen Route Start Time Stop Time Status Last Admin Dose Admin Acetaminophen/ Hydrocodone Bitart 1 tab Q4HP PRN PO 07/13/25 12:45 Hold Ondansetron HCl 4 mg Q4HP PRN IV 07/13/25 12:45 Docusate Sodium 100 mg BIDPRN PRN PO 07/13/25 12:45 Acetaminophen 650 mg Q6HP PRN PO 07/13/25 12:45 Nitroglycerin 0.4 mg Q5MINP PRN SL 07/13/25 12:45 Morphine Sulfate 2 mg Q30M PRN IV 07/13/25 12:45 Hold Empaglifozin 10 mg DAILY PO 07/14/25 10:00 07/14/25 09:41 10 MG Patient Own Medication 1 tab DAILY PO 07/14/25 10:00 UNV Ceftriaxone Sodium 50 ml @ 100 mls/hr DAILY@09 IV 07/14/25 09:00 07/14/25 09:40 100 MLS/HR Folic Acid 1 mg DAILY PO 07/14/25 10:00 07/14/25 09:41 1 MG Thiamine HCl 100 mg DAILY PO 07/14/25 10:00 07/14/25 09:42 100 MG Multivitamins 1 tab DAILY PO 07/14/25 10:00 07/14/25 09:41 1 TAB Furosemide 40 mg BIDD IV 07/13/25 18:00 07/14/25 05:44 40 MG Atorvastatin Calcium 80 mg HS PO 07/13/25 22:00 07/13/25 21:39 80 MG Sacubitril/ Valsartan 1 tab BID PO 07/13/25 22:00 07/14/25 09:41 1 TAB Spironolactone 25 mg DAILY PO 07/14/25 10:00 07/14/25 09:42 25 MG Diagnostic Test (Pha) 1 strip ACHS 07/13/25 17:00 07/14/25 05:49 1 STRIP Insulin Human Regular HS SC 07/13/25 22:00 07/13/25 21:39 2 UNITS Insulin Human Regular AC SC 07/13/25 17:00 07/14/25 05:46 2 UNITS Dextrose 50 ml UD PRN IV 07/13/25 15:45 Empaglifozin 10 mg DAILY PO 07/15/25 10:00 UNV Examination General: Patient alert and oriented in person, place and time. Patient following commands. HEENT: Normocephalic, atraumatic, moist mucous membranes Respiratory/pulmonary: bilateral bibasilar crackles heard on auscultation Cardiovascular: Normal heart sounds S1 and S2 with no associated murmurs Abdomen: Abdomen nondistended, there is no pain to palpation in any of the abdominal quadrants, no palpable masses. Extremities: +1 bilateral pitting edema Peripheral Pulses: 3+ Radial (R). 3+ Radial (L). 3+ Dorsalis pedis (R). 3+ Dorsalis pedis(L) Skin: No rashes or pruritus, there is no sacral edema present at this time. Neurological: Intact cranial nerves with no focal neurologic deficits laboratory and microbiology Laboratory Tests 07/14/25 07:20 Test 07/14/25 07:20 Range/Units Serum Glucose 138 H 74-106 mg/dL Labs and/or images reviewed: Labs reviewed by me, Image(s) reviewed by me (RN) Problem List/Assessment/Plan Problem List/Assessment/Plan #SIRS due to CHF Exacerbation #NSTEMI likely type 2 #Acute on chronic decompensated HFrEF, NYHA class III # NSTEMI likely type 2 from CHF exacerbation # Acute on chronic decompensated HFrEF, NYHA class III # Medication nonadherence / noncompliance # polysubstance abuse /dependence(marijuana, methamphetamine, smoking, alcohol) # ? pulmonary hypertension, severe # mild pericardial effusion # Ischemic versus nonischemic cardiomyopathy #Hypertension #HLD, continue atorvastatin - BNP elevated - troponins uptrending - echo showed EF 20% with severe MR and TR - cardiology on board - Initiate guideline directed medical therapy for CHF as tolerated Entresto p.o. b.i.d. spironolactone 25 mg p.o. daily, Jardiance 10 mg p.o. daily - Initiate beta-anjali once patient has been properly diuresed - Strict intake and output, daily weights, maintain fluid restriction - Aggressive diuresis as tolerated Furosemide 40 mg BI D IV - Adherence to medication regimen explained the risks versus benefits - Per cardio, not a candidate for invasive cardiac workup, medical management #Type 2 diabetes mellitus HbA1c: 7.7 -moderate ISS # hypokalemia - repleting - monitor # hyperbilirubinemia likely alcohol related- monitor left for now #Polysubstance abuse -counseling on cessation given for more than 17 minutes # ? UTI -continue Rocephin -urine cultures # alcohol dependence -monitor for symptoms of withdrawal -continue folic acid and thiamine #Obesity: BMI 35.5-dietary counseling, lifestyle modifications #Medical noncompliance Goals of care addressed with the patient for more than 27 minutes: Full code status Case discussed with , patient and nurse Plan discussed with: Patient, Other My Orders My Orders Orders - CHASE OMER Procedure Category Date Status Time Drug Screen LAB 07/14/25 Logged 10:18 PTPTT LAB 07/14/25 In Process 10:18 Empagliflozin PHA 07/15/25 Logged (Jardiance) 10:00 Date of Service: Jul 14, 2025 Billing Provider: LINDY WHITE MD Common Visit Codes: [id number] INP/OBS CARE(HIGH) CHASE OMER RESIDENT Jul 14, 2025 10:51 LINDY WHITE MD Jul 14, 2025 23:54
[2025-07-14 10:56] LABS: INR 1.14 (0.9-1.15); Prothrombin Time 11.9 sec (9.3-11.8)
[2025-07-14 10:57] LABS: Partial Thromboplastin Time 27.9 SEC (24.5-34.5)
[2025-07-14 12:27] LABS: Amphetamine Screen, Urine Pos (NEGATIVE); Barbiturate Scree,Urine Neg (NEGATIVE); Benzodiazephine Screen, Urine Neg (NEGATIVE); Cannabinoid Screen, Urine Neg (NEGATIVE); Cocaine Screen, Urine Neg (NEGATIVE); Opiate Scree,Urine Neg (NEGATIVE); Phencyclidine Screen, Urine Neg (NEGATIVE)
[2025-07-14] MEDS: NICOTINE 14 MG/24HR TOPICAL PATCH TD ONE (17:15)
--- NOTE | 2025-07-14 23:37 | DVHPN2 ---
Progress Note - Dictate Date Seen: Jul 14, 2025 Medical Necessity Reason Pt with a Central, PICC or Fol: No Subjective Patient was seen and evaluated in follow up. Patient is on 2 LPM NC. Patient is complaining of generalized pain. WBC 11.7, K 3.4, GLUC 212, CA 8.5. Echocardiogram is pending. Telemetry reviewed. vital signs Vital Sign Date Time Temp Pulse Resp B/P (MAP) Pulse Ox O2 Delivery O2 Flow Rate FiO2 07/14/25 21:00 98.0 108 20 158/105 (122) 96 98.0 07/14/25 08:00 Room Air* 0 21 Total Intake and Output 07/13/25 07/13/25 07/14/25 15:00 23:00 07:00 Intake Total 150 ml 440 ml Balance 150 ml 440 ml medications Current Medications Medications Dose Ordered Sig/Kellen Route Start Time Stop Time Status Last Admin Dose Admin Acetaminophen/ Hydrocodone Bitart 1 tab Q4HP PRN PO 07/13/25 12:45 Hold Ondansetron HCl 4 mg Q4HP PRN IV 07/13/25 12:45 Docusate Sodium 100 mg BIDPRN PRN PO 07/13/25 12:45 Acetaminophen 650 mg Q6HP PRN PO 07/13/25 12:45 Nitroglycerin 0.4 mg Q5MINP PRN SL 07/13/25 12:45 Morphine Sulfate 2 mg Q30M PRN IV 07/13/25 12:45 Hold Patient Own Medication 1 tab DAILY PO 07/14/25 10:00 UNV Ceftriaxone Sodium 50 ml @ 100 mls/hr DAILY@09 IV 07/14/25 09:00 07/14/25 09:40 100 MLS/HR Folic Acid 1 mg DAILY PO 07/14/25 10:00 07/14/25 09:41 1 MG Thiamine HCl 100 mg DAILY PO 07/14/25 10:00 07/14/25 09:42 100 MG Multivitamins 1 tab DAILY PO 07/14/25 10:00 07/14/25 09:41 1 TAB Furosemide 40 mg BIDD IV 07/13/25 18:00 07/14/25 17:45 40 MG Atorvastatin Calcium 80 mg HS PO 07/13/25 22:00 07/13/25 21:39 80 MG Sacubitril/ Valsartan 1 tab BID PO 07/13/25 22:00 07/14/25 09:41 1 TAB Spironolactone 25 mg DAILY PO 07/14/25 10:00 07/14/25 09:42 25 MG Diagnostic Test (Pha) 1 strip ACHS 07/13/25 17:00 07/14/25 16:25 1 STRIP Insulin Human Regular HS SC 07/13/25 22:00 07/13/25 21:39 2 UNITS Insulin Human Regular AC SC 07/13/25 17:00 07/14/25 17:15 3 UNITS Dextrose 50 ml UD PRN IV 07/13/25 15:45 Empaglifozin 10 mg DAILY PO 07/15/25 10:00 Nicotine 1 patch DAILY TD 07/15/25 10:00 objective GENERAL: Alert and oriented x 3. No acute distress. Obesity. EYES: PERRL, EOMI. Anicteric. HENT: Moist mucous membranes. LUNGS: Clear to auscultation bilaterally. CARDIOVASCULAR: Regular rate and rhythm. ABDOMEN: Soft, non-tender and non-distended. EXTREMITIES: 3+ pitting edema. NEUROLOGIC: No focal neurological deficits. SKIN: Warm, dry. laboratory and microbiology Laboratory Tests 07/14/25 07:20 Test 07/14/25 07:20 Range/Units Serum Glucose 138 H 74-106 mg/dL Problem List NSTEMI. Acute on chronic decompensated HFrEF, NYHA class III. Hypertension. Dyslipidemia. Type 2 diabetes mellitus. Polysubstance abuse. Obesity. Medical noncompliance. Dietary indiscretions. Assessment/Plan Continued all current supportive medical care. Echocardiogram Lipitor. IV antibiotics as ordered. Entresto. Diuretics with Lasix. Additional plan as per the hospital course. Plan discussed with: Patient WILLIAM FONTENOT MD Jul 14, 2025 22:04
[2025-07-15] VITALS (10 sets, daily range): BP systolic 127–144; BP diastolic 82–96; PULSE 94–112; RESP 16–19; TEMP 97.6–98.2; O2SAT 94–97
[2025-07-15 06:20] LABS: Alanine Aminotransferase 25 U/L (7-40); Albumin 3.4 g/dL (3.2-4.8); Anion Gap 12 (5-15); BUN/Creatinine Ratio 11.0 (10.0-20.0); Carbon Dioxide 24 mmol/L (20-31); Chloride 104 mmol/L (98-107); Sodium 140 mmol/L (136-145)
[2025-07-15 06:24] LABS: Alkaline Phosphatase 181 U/L (46-116); Bilirubin, Total 1.7 mg/dL (0.2-1.0); Blood Urea Nitrogen 9 mg/dL (9-23); Calcium 8.3 mg/dL (8.7-10.4); Glucose 124 mg/dL (74-106); Potassium 3.4 mmol/L (3.5-5.1); Total Protein 5.5 g/dL (5.7-8.2)
[2025-07-15 07:01] LABS: Nucleated Red Blood Cells % 0.3 %
[2025-07-15 07:04] LABS: Hematocrit 50.7 % (36.0-46.0); Hemoglobin 16.6 g/dL (12.2-16.2); Mean Corpuscular Hemoglobin 25.6 pg (28.0-32.0); Mean Corpuscular Volume 78.1 fL (80.0-100.0)
[2025-07-15] MEDS: POTASSIUM EFFERVESENT TAB 25 MEQ PO ONE (09:32)
[2025-07-15] MEDS: EMPAGLIFLOZIN 10 MG TAB PO SCH (09:32)
[2025-07-15] MEDS: NICOTINE 14 MG/24HR TOPICAL PATCH TD SCH (09:39)
[2025-07-15] MEDS: CARVEDILOL 3.125 MG TAB PO ONE (14:05)
--- NOTE | 2025-07-15 19:36 | DVHPNRES ---
Progress Note Date Seen: Jul 15, 2025 Resident Creating Document: CHASE OMER RESIDENT Medical Necessity Reason Pt with a Central, PICC or Fol: No Subjective Review of Systems Patient is a 40-year-old female with past medical history of , hypotension, diabetes, asthma, who came to the ED with chief complaints of shortness of breath and bilateral leg swelling since 2 weeks. Patient states that she has been off her medications for about 2 weeks as her meds ran out 2 weeks ago because she does not have a primary care doctor and goes to the ED every time she needs medication. patient is not following up with mechanical development engineer. On arrival troponin was 804 and is up trending. BNP 821. past surgical history: Denies Personal history: Smokes less than a pack per day, drinks heavily almost every day, uses weed gummies, smokes methamphetamine lives with: friends 07/14/2025 Patient seen in holding. Patient is alert x3, in no distress, is on room air, denies being on home oxygen. she states that her shortness of breath, swelling has increased since 2 weeks. chest x-ray shows cardiomegaly with pulmonary vascular congestion. Echo shows dilated all cardiac chambers, severe LV and RV hypokinesis, LVEF of only 20%, severe mitral and tricuspid valve regurgitation. mild posterior pericardial effusion, or we SP is 63 mm of Hg, critical pulmonary hypotension 07/15/2025 Patient seen at bedside. Patient is alert x3, in no distress, is in on room air and denies any chest pain, palpitations, shortness for breath, her leg swelling has decreased. Patient had hypokalemia, potassium was given. Carvedilol was started today. Objective vital signs Vital Sign Date Time Temp Pulse Resp B/P (MAP) Pulse Ox O2 Delivery O2 Flow Rate FiO2 07/15/25 18:03 144/95 07/15/25 16:58 97.6 109 19 95 97.6 07/15/25 08:26 0.0 21 07/15/25 08:01 Room Air* Total Intake and Output 07/14/25 07/14/25 07/15/25 15:00 23:00 07:00 Intake Total 50 ml 700 ml 930 ml Balance 50 ml 700 ml 930 ml medications Current Medications Medications Dose Ordered Sig/Kellen Route Start Time Stop Time Status Last Admin Dose Admin Acetaminophen/ Hydrocodone Bitart 1 tab Q4HP PRN PO 07/13/25 12:45 Hold Ondansetron HCl 4 mg Q4HP PRN IV 07/13/25 12:45 Docusate Sodium 100 mg BIDPRN PRN PO 07/13/25 12:45 Acetaminophen 650 mg Q6HP PRN PO 07/13/25 12:45 Nitroglycerin 0.4 mg Q5MINP PRN SL 07/13/25 12:45 Morphine Sulfate 2 mg Q30M PRN IV 07/13/25 12:45 Hold Patient Own Medication 1 tab DAILY PO 07/14/25 10:00 UNV Ceftriaxone Sodium 50 ml @ 100 mls/hr DAILY@09 IV 07/14/25 09:00 07/15/25 09:32 100 MLS/HR Folic Acid 1 mg DAILY PO 07/14/25 10:00 07/15/25 09:32 1 MG Thiamine HCl 100 mg DAILY PO 07/14/25 10:00 07/15/25 09:32 100 MG Multivitamins 1 tab DAILY PO 07/14/25 10:00 07/15/25 09:32 1 TAB Furosemide 40 mg BIDD IV 07/13/25 18:00 07/15/25 18:03 40 MG Atorvastatin Calcium 80 mg HS PO 07/13/25 22:00 07/14/25 22:05 80 MG Sacubitril/ Valsartan 1 tab BID PO 07/13/25 22:00 07/15/25 09:33 1 TAB Spironolactone 25 mg DAILY PO 07/14/25 10:00 07/15/25 09:32 25 MG Diagnostic Test (Pha) 1 strip ACHS 07/13/25 17:00 07/15/25 17:27 1 STRIP Insulin Human Regular HS SC 07/13/25 22:00 07/14/25 22:11 4 UNITS Insulin Human Regular AC SC 07/13/25 17:00 07/15/25 17:28 2 UNITS Dextrose 50 ml UD PRN IV 07/13/25 15:45 Empaglifozin 10 mg DAILY PO 07/15/25 10:00 07/15/25 09:32 10 MG Nicotine 1 patch DAILY TD 07/15/25 10:00 Carvedilol 3.125 mg Q12HR PO 07/15/25 22:00 Examination General: Patient alert and oriented in person, place and time. Patient following commands. HEENT: Normocephalic, atraumatic, moist mucous membranes Respiratory/pulmonary: Clear lungs bilaterally, vesicular murmurs present in almost all lung sanchez, no associated crackles or wheezes. Cardiovascular: Normal heart sounds S1 and S2 with no associated murmurs Abdomen: Abdomen nondistended, there is no pain to palpation in any of the abdominal quadrants, no palpable masses. Extremities: There is no peripheral edema present at the lower extremities. Peripheral Pulses: 3+ Radial (R). 3+ Radial (L). 3+ Dorsalis pedis (R). 3+ Dorsalis pedis(L) Skin: No rashes or pruritus, there is no sacral edema present at this time. Neurological: Intact cranial nerves with no focal neurologic deficits laboratory and microbiology Laboratory Tests 07/15/25 04:59 Test 07/15/25 04:59 Range/Units Serum Glucose 124 H 74-106 mg/dL Problem List/Assessment/Plan Problem List/Assessment/Plan #SIRS due to CHF Exacerbation #NSTEMI likely type 2 #Acute on chronic decompensated HFrEF, NYHA class III # NSTEMI likely type 2 from CHF exacerbation # Acute on chronic decompensated HFrEF, NYHA class III # Medication nonadherence / noncompliance # polysubstance abuse /dependence(marijuana, methamphetamine, smoking, alcohol) # ? pulmonary hypertension, severe # mild pericardial effusion # Ischemic versus nonischemic cardiomyopathy #Hypertension #HLD, continue atorvastatin - BNP elevated - troponins uptrending - echo showed EF 20% with severe MR and TR - cardiology on board - Initiate guideline directed medical therapy for CHF as tolerated Entresto p.o. b.i.d. spironolactone 25 mg p.o. daily, Jardiance 10 mg p.o. daily - Initiate beta-anjali once patient has been properly diuresed - Strict intake and output, daily weights, maintain fluid restriction - Aggressive diuresis as tolerated Furosemide 40 mg BI D IV - Adherence to medication regimen explained the risks versus benefits - Per cardio, not a candidate for invasive cardiac workup, medical management #Type 2 diabetes mellitus HbA1c: 7.7 -moderate ISS # hypokalemia - repleting - monitor # hyperbilirubinemia likely alcohol related- monitor left for now #Polysubstance abuse -counseling on cessation given for more than 17 minutes # ? UTI -continue Rocephin -urine cultures # alcohol dependence -monitor for symptoms of withdrawal -continue folic acid and thiamine #Obesity: BMI 35.5-dietary counseling, lifestyle modifications #Medical noncompliance Goals of care addressed with the patient for more than 27 minutes: Full code status Case discussed with , patient and nurse Plan discussed with: Patient My Orders My Orders Orders - CHASE OMER Procedure Category Date Status Time Carvedilol Tablet PHA 07/15/25 In Process (Coreg Tablet) 22:00 Date of Service: Jul 15, 2025 Billing Provider: LINDY WHITE MD Common Visit Codes: [id number] INP/OBS CARE(HIGH) CHASE OMER Jul 15, 2025 19:36 LINDY WHITE MD Jul 15, 2025 21:38
[2025-07-15] MEDS: ACETAMINOPHEN 325 MG TAB PO PRN (19:55)
[2025-07-15] MEDS: CARVEDILOL 3.125 MG TAB PO SCH (22:15)
--- NOTE | 2025-07-15 23:01 | DVHPN2 ---
Progress Note - Dictate Date Seen: Jul 15, 2025 Medical Necessity Reason Pt with a Central, PICC or Fol: No Subjective Patient was seen and evaluated in follow up. Patient is complaining of generalized discomfort. Echocardiogram showed an EF of 20%. K 3.4, CA 8.3. Telemetry reviewed. vital signs Vital Sign Date Time Temp Pulse Resp B/P (MAP) Pulse Ox O2 Delivery O2 Flow Rate FiO2 07/15/25 08:49 97.6 98 19 127/82 (97) 97 97.6 07/15/25 08:26 0.0 21 07/15/25 08:01 Room Air* Total Intake and Output 07/14/25 07/14/25 07/15/25 15:00 23:00 07:00 Intake Total 50 ml 700 ml 930 ml Balance 50 ml 700 ml 930 ml medications Current Medications Medications Dose Ordered Sig/Kellen Route Start Time Stop Time Status Last Admin Dose Admin Acetaminophen/ Hydrocodone Bitart 1 tab Q4HP PRN PO 07/13/25 12:45 Hold Ondansetron HCl 4 mg Q4HP PRN IV 07/13/25 12:45 Docusate Sodium 100 mg BIDPRN PRN PO 07/13/25 12:45 Acetaminophen 650 mg Q6HP PRN PO 07/13/25 12:45 Nitroglycerin 0.4 mg Q5MINP PRN SL 07/13/25 12:45 Morphine Sulfate 2 mg Q30M PRN IV 07/13/25 12:45 Hold Patient Own Medication 1 tab DAILY PO 07/14/25 10:00 UNV Ceftriaxone Sodium 50 ml @ 100 mls/hr DAILY@09 IV 07/14/25 09:00 07/15/25 09:32 100 MLS/HR Folic Acid 1 mg DAILY PO 07/14/25 10:00 07/15/25 09:32 1 MG Thiamine HCl 100 mg DAILY PO 07/14/25 10:00 07/15/25 09:32 100 MG Multivitamins 1 tab DAILY PO 07/14/25 10:00 07/15/25 09:32 1 TAB Furosemide 40 mg BIDD IV 07/13/25 18:00 07/15/25 06:28 40 MG Atorvastatin Calcium 80 mg HS PO 07/13/25 22:00 07/14/25 22:05 80 MG Sacubitril/ Valsartan 1 tab BID PO 07/13/25 22:00 07/15/25 09:33 1 TAB Spironolactone 25 mg DAILY PO 07/14/25 10:00 07/15/25 09:32 25 MG Diagnostic Test (Pha) 1 strip ACHS 07/13/25 17:00 07/15/25 11:53 1 STRIP Insulin Human Regular HS SC 07/13/25 22:00 07/14/25 22:11 4 UNITS Insulin Human Regular AC SC 07/13/25 17:00 07/15/25 11:54 2 UNITS Dextrose 50 ml UD PRN IV 07/13/25 15:45 Empaglifozin 10 mg DAILY PO 07/15/25 10:00 07/15/25 09:32 10 MG Nicotine 1 patch DAILY TD 07/15/25 10:00 Carvedilol 3.125 mg Q12HR PO 07/15/25 22:00 objective GENERAL: Alert and oriented x 3. No acute distress. Obesity. EYES: PERRL, EOMI. Anicteric. HENT: Moist mucous membranes. LUNGS: Clear to auscultation bilaterally. CARDIOVASCULAR: Regular rate and rhythm. ABDOMEN: Soft, non-tender and non-distended. EXTREMITIES: 3+ pitting edema. NEUROLOGIC: No focal neurological deficits. SKIN: Warm, dry. laboratory and microbiology Laboratory Tests 07/15/25 04:59 Test 07/15/25 04:59 Range/Units Serum Glucose 124 H 74-106 mg/dL Problem List NSTEMI. Acute on chronic decompensated HFrEF, NYHA class III. Hypertension. Dyslipidemia. Type 2 diabetes mellitus. Polysubstance abuse. Obesity. Medical noncompliance. Dietary indiscretions. Assessment/Plan Continued all current supportive medical care. Coreg. Entresto. Nitro SL. Diuretics with Lasix. IV antibiotics as ordered. Tylenol for pain management. Additional plan as per the hospital course. Plan discussed with: Patient WILLIAM FONTENOT MD Jul 15, 2025 12:38
[2025-07-16] VITALS (7 sets, daily range): BP systolic 110–122; BP diastolic 68–85; PULSE 80–100; RESP 15–19; TEMP 97.1–98.7; O2SAT 93–97
[2025-07-16 08:11] LABS: Chloride 103 mmol/L (98-107); Potassium 3.8 mmol/L (3.5-5.1); Sodium 139 mmol/L (136-145)
[2025-07-16 08:12] LABS: Anion Gap 12 (5-15); Carbon Dioxide 24 mmol/L (20-31)
[2025-07-16 08:17] LABS: BUN/Creatinine Ratio 9.8 (10.0-20.0); Blood Urea Nitrogen 9 mg/dL (9-23)
[2025-07-16 08:19] LABS: Calcium 8.5 mg/dL (8.7-10.4); Glucose 160 mg/dL (74-106)
[2025-07-16] MEDS: SILDENAFIL CITRATE 20 MG TAB PO SCH (08:52)
[2025-07-16] MEDS ORDERED: CARV12.544 PO (10:17)
[2025-07-16] MEDS ORDERED: THIA100T10 PO (10:17)
[2025-07-16] MEDS ORDERED: SACU1TAB PO (10:17)
[2025-07-16] MEDS ORDERED: SPIR25TA PO (10:17)
[2025-07-16] MEDS ORDERED: SILD20TA PO (10:17)
[2025-07-16] MEDS ORDERED: FOLI-119 PO (10:17)
[2025-07-16] MEDS ORDERED: EMPA1TAB PO (10:17)
[2025-07-16] MEDS ORDERED: FURO40TA4 PO (10:17)
[2025-07-16] MEDS ORDERED: ATOR-47 PO (10:17)
--- NOTE | 2025-07-16 10:45 | DVHDSRES ---
Discharge Summary Date of Admission Resident Creating Document: CHASE OMER Jul 13, 2025 at 12:43 Date of Discharge: Jul 16, 2025 Admitting Diagnosis #SIRS due to CHF Exacerbation Labs/Diagnostic Data: Laboratory Results Test 07/16/25 05:45 07/16/25 04:52 07/15/25 04:59 07/14/25 07:20 POC Glucose 182 mg/dl (70-106) Sodium Level 139 mmol/L (136-145) Potassium Level 3.8 mmol/L (3.5-5.1) Chloride Level 103 mmol/L (98-107) Carbon Dioxide Level 24 mmol/L (20-31) Anion Gap 12 (5-15) Blood Urea Nitrogen 9 mg/dL (9-23) Creatinine 0.92 mg/dL (0.550-1.02) Glomerular Filtration Rate Calc 80 mL/min (>90) BUN/Creatinine Ratio 9.8 (10.0-20.0) Serum Glucose 160 mg/dL (74-106) Calcium Level 8.5 mg/dL (8.7-10.4) White Blood Count 9.9 10^3/uL (4.4-10.8) Red Blood Count 6.49 10^6/uL (4.0-5.20) Hemoglobin 16.6 g/dL (12.2-16.2) Hematocrit 50.7 % (36.0-46.0) Mean Corpuscular Volume 78.1 fL (80.0-100.0) Mean Corpuscular Hemoglobin 25.6 pg (28.0-32.0) Mean Corpuscular Hemoglobin Concent 32.8 g/dL (32.0-36.0) Red Cell Distribution Width 19.0 % (11.8-14.3) Platelet Count 160 10^3/uL (140-450) Mean Platelet Volume 10.5 fL (6.9-10.8) Neutrophils (%) (Auto) 66.3 % (37.0-80.0) Lymphocytes (%) (Auto) 16.4 % (10.0-50.0) Monocytes (%) (Auto) 13.5 % (0.0-12.0) Eosinophils (%) (Auto) 3.0 % (0.0-7.0) Basophils (%) (Auto) 0.8 % (0.0-2.0) Neutrophils # (Auto) 6.6 10 ^3/uL (1.6-8.6) Lymphocytes # (Auto) 1.6 10 ^3/uL (0.4-5.4) Monocytes # (Auto) 1.3 10 ^3/uL (0-1.3) Eosinophils # (Auto) 0.3 10 ^3/uL (0-0.8) Basophils # (Auto) 0.1 10 ^3/uL (0-0.2) Nucleated Red Blood Cells 0.3 % Total Bilirubin 1.7 mg/dL (0.2-1.0) Aspartate Amino Transferase (AST) 29 U/L (13-40) Alanine Aminotransferase (ALT) 25 U/L (7-40) Alkaline Phosphatase 181 U/L (46-116) Total Protein 5.5 g/dL (5.7-8.2) Albumin 3.4 g/dL (3.2-4.8) Prothrombin Time 11.9 sec (9.3-11.8) Prothrombin Time INR 1.14 (0.9-1.15) Activated Partial Thromboplast Time 27.9 SEC (24.5-34.5) Magnesium Level 1.8 mg/dL (1.6-2.6) Test 07/13/25 21:23 07/13/25 10:35 07/13/25 10:33 07/13/25 09:54 Troponin I High Sensitivity 1129 ng/L (</=34) Urine Opiates Screen Neg (NEGATIVE) Urine Fentanyl Screen Neg (NEGATIVE) Urine Barbiturates Screen Neg (NEGATIVE) Urine Phencyclidine Screen Neg (NEGATIVE) Urine Amphetamines Screen Pos (NEGATIVE) Urine Benzodiazepines Screen Neg (NEGATIVE) Urine Cocaine Screen Neg (NEGATIVE) Urine Cannabinoids Screen Neg (NEGATIVE) Urine Color Yellow (Yellow) Urine Clarity Turbid (Clear) Urine pH 6.0 (5.0-9.0) Urine Specific [place] 1.025 (1.001-1.035) Urine Protein 3+ (Negative) Urine Ketones Negative (Negative) Urine Blood 1+ /uL (Negative) Urine Nitrite 2+ (Negative) Urine Bilirubin 1+ (Negative) Urine Urobilinogen Normal mg/dL (Negative) Urine Leukocyte Esterase Negative /uL (Negative) Urine RBC 3 /hpf (0 - 4) Urine Microscopic WBC 6 /HPF (0-5) Urine Squamous Epithelial Cells Few /hpf (<5) Urine Bacteria Mod /hpf (None Seen) Urine Mucus Few (None Seen) Urine Glucose Normal mg/dL (Normal) Hemoglobin A1c 7.7 % A1C (<5.7) B-Type Natriuretic Peptide 821.57 pg/mL (0-100) Triglycerides Level 145 mg/dL (< 150) Cholesterol Level 164 mg/dL (< 200) LDL Cholesterol 128 mg/dL (< 100) HDL Cholesterol 28 mg/dL (40-59) Thyroid Stimulating Hormone (TSH) 4.65 uIU/mL (0.55-4.78) Other Laboratory Tests 07/16/25 04:52 07/15/25 04:59 Brief Hx & Hospital Course: Patient is a 40-year-old female with past medical history of , hypotension, diabetes, asthma, who came to the ED with chief complaints of shortness of breath and bilateral leg swelling since 2 weeks. Patient states that she has been off her medications for about 2 weeks as her meds ran out 2 weeks ago because she does not have a primary care doctor and goes to the ED every time she needs medication. patient is not following up with equipment worker. On arrival troponin was 804 and is up trending. BNP 821. past surgical history: Denies Personal history: Smokes less than a pack per day, drinks heavily almost every day, uses weed gummies, smokes methamphetamine lives with: friends Brief hospital course: Patient came to the ED with chief complaints of shortness of breath probably due to acute on chronic exacerbation of decompensated HFrEF, NSTEMI likely type 2 from CHF exacerbation, SIRS due to CHF Exacerbation, severe pulmonary hypertension. her BNP was elevated, tropes were up trending and echo was done which showed EF 20% with severe MR and TR, cardiology was consulted who stated that patient is not a candidate for invasive cardiac workup and to continue medical management. Patient was initiated on GDMT for CHF as tolerated with Entresto p.o. b.i.d., spironolactone 25 mg p.o. daily, Jardiance 10 mg p.o. daily, patient was initiated on carvedilol once she was properly diuresed. Patient was on strict input and output, daily weights, maintenance fluid restriction, aggressive dialysis as tolerated with furosemide 40 mg IV b.i.d. adherence to medication regimen explained with risks versus benefits. For patient's diabetes mellitus with HbA1c of 7.7 moderate insulin sliding scale was started. For her hypokalemia potassium was given and repleted. For her hyperbilirubinemia likely alcohol related labs were monitored. patient was counseled on cessation of her polysubstance use for more than 17 minutes and explained the benefits and risks of continuing drug use especially methamphetamine. Patient was monitored for alcohol withdrawal symptoms and was given thiamine and folic acid. patient is obese and was counseled on lifestyle modifications, exercise, weight loss. Patient was advised to take all her medications regularly and explained the importance of taking it every day. Patient is stable for discharge and was explained her discharge plan, communicated understanding, and agreed. Patient is to follow-up with PCP, equipment worker, discharge Clinic in 1-2 weeks. General: Patient alert and oriented in person, place and time. Patient following commands. HEENT: Normocephalic, atraumatic, moist mucous membranes Respiratory/pulmonary: Clear lungs bilaterally, vesicular murmurs present in almost all lung sanchez, no associated crackles or wheezes. Cardiovascular: Normal heart sounds S1 and S2 with no associated murmurs Abdomen: Abdomen nondistended, there is no pain to palpation in any of the abdominal quadrants, no palpable masses. Obese abdomen Extremities: There is no peripheral edema present at the lower extremities. Peripheral Pulses: 3+ Radial (R). 3+ Radial (L). 3+ Dorsalis pedis (R). 3+ Dorsalis pedis(L) Skin: No rashes or pruritus, there is no sacral edema present at this time. Neurological: Intact cranial nerves with no focal neurologic deficits Discharge instructions: Patient is to take all medications every day Patient is to follow-up with discharge Clinic, PCP, equipment worker in 1-2 weeks Operations or Procedures ORDERING PHYSICIAN: HAYDEN HILL MD PROCEDURE(s): CXRP - CHEST PORTABLE REASON: sob ORDER NUMBER(s): [id number], ACCESSION NUMBER(s): [id number] XY CHEST PORTABLE, HISTORY: sob COMPARISON: XY CHEST TWO VIEWS ROUTINE on DOS: 11/10/24, CHEST XRAY 1 VIEW on DOS: 12/30/20 XY CHEST TWO VIEWS ROUTINE on DOS: 11/10/24, CHEST XRAY 1 VIEW on DOS: 12/30/20 TECHNICAL DATA: 1 view of the chest was obtained. FINDINGS: Lines and tubes: None Cardiomediastinal silhouette: enlarged Pulmonary vasculature: prominent Lung expansion: normal Lung airspace: normal Lung interstitium: normal Pleura: normal Pneumothorax: no Bones: Unremarkable Other: no IMPRESSION: Cardiomegaly with pulmonary vascular congestion. Condition at Discharge: Stable Final Diagnosis/Problems List #SIRS due to CHF Exacerbation # Acute on chronic decompensated HFrEF, NYHA class III # NSTEMI likely type 2 from CHF exacerbation # Medication nonadherence / noncompliance # polysubstance abuse /dependence(marijuana, methamphetamine, smoking, alcohol) # pulmonary hypertension, severe # mild pericardial effusion # Ischemic versus nonischemic cardiomyopathy #Hypertension #HLD, continue atorvastatin Discharge Disposition: Home Discharge Instruct/Medications Diet: Consistent carbohydrate, Cardiac 2g Na,low cholest Diet comment: Fluid Restriction less than 50 oz per day Activity: No Restrictions, As Tolerated Follow Up/Referral: Follow-up with equipment worker in 1-2 weeks Follow-up with discharge Clinic in 1 week follow-up with PCP in 1 week Medications: Take Entresto 24-26 mg the patient Furosemide 40 mg p.o. daily 9 Jardiance 10 mg p.o. daily Sildenafil 20 mg t.i.d. Thiamine spirinolactone 25 mg p.o. daily Scheduled Atorvastatin Calcium (Atorvastatin Calcium), 1 TAB PO DAILY Carvedilol (Carvedilol), 1 TAB PO BID Empagliflozin (Jardiance), 10 MG PO DAILY Folic Acid (Folic Acid), 1 MG PO DAILY Furosemide (Furosemide), 40 MG PO DAILY Sacubitril-Valsartan (Entresto 24-26 mg), 1 TAB PO BID Sildenafil Citrate (Revatio), 20 MG PO TID@08,14,20 Spironolactone (Aldactone), 25 MG PO DAILY Thiamine Hcl (Vitamin B-1), 100 MG PO DAILY Discontinued Medications Nitrofurantoin Monohydrate Mac (Macrobid), 100 MG PO BID Discharge Statement: "Patient was advised to return to the ER or call 911 if any headaches, dizziness, shortness of breath, chest pain, abdominal pain, bleeding, fevers, or worsening of medical condition. Patient was counseled about treatment plan, medications, possible side effects, patientverbalized understanding. All questions were answered to the best of my ability. This discharge took greater then 30 minutes in planning, reviewing documentation, counseling the patient, and discussing with other team members." ASSESSMENT ASSESSMENT Assessment Acute on chronic exacerbation of CHF Date of Service: Jul 16, 2025 Billing Provider: LINDY WHITE MD Common Visit Codes: [id number] DISCH DAY >30min CHASE OMER RESIDENT Jul 16, 2025 10:45 LINDY WHITE MD Jul 16, 2025 23:39
--- NOTE | 2025-07-16 19:25 | DVHPN2 ---
Progress Note - Dictate Date Seen: Jul 16, 2025 Medical Necessity Reason Pt with a Central, PICC or Fol: No Subjective Patient was seen and evaluated in follow up. Patient has no new complaints at this time. Patient denies any cardiac symptoms. Patient is cardiac stable for discharge. Telemetry reviewed. vital signs Vital Sign Date Time Temp Pulse Resp B/P (MAP) Pulse Ox O2 Delivery O2 Flow Rate FiO2 07/16/25 12:22 97.1 93 16 110/78 (89) 96 97.1 07/16/25 08:00 Room Air* 0 21 Total Intake and Output 07/15/25 07/15/25 07/16/25 15:00 23:00 07:00 Intake Total 500 ml 650 ml Balance 500 ml 650 ml medications Current Medications Medications Dose Ordered Sig/Kellen Route Start Time Stop Time Status Last Admin Dose Admin Acetaminophen/ Hydrocodone Bitart 1 tab Q4HP PRN PO 07/13/25 12:45 Hold Ondansetron HCl 4 mg Q4HP PRN IV 07/13/25 12:45 Docusate Sodium 100 mg BIDPRN PRN PO 07/13/25 12:45 Acetaminophen 650 mg Q6HP PRN PO 07/13/25 12:45 07/15/25 19:55 650 MG Nitroglycerin 0.4 mg Q5MINP PRN SL 07/13/25 12:45 Hold Morphine Sulfate 2 mg Q30M PRN IV 07/13/25 12:45 Hold Patient Own Medication 1 tab DAILY PO 07/14/25 10:00 UNV Ceftriaxone Sodium 50 ml @ 100 mls/hr DAILY@09 IV 07/14/25 09:00 07/16/25 08:52 100 MLS/HR Folic Acid 1 mg DAILY PO 07/14/25 10:00 07/16/25 10:17 1 MG Thiamine HCl 100 mg DAILY PO 07/14/25 10:00 07/16/25 10:18 100 MG Multivitamins 1 tab DAILY PO 07/14/25 10:00 07/16/25 10:18 1 TAB Furosemide 40 mg BIDD IV 07/13/25 18:00 07/16/25 05:47 40 MG Atorvastatin Calcium 80 mg HS PO 07/13/25 22:00 07/15/25 22:15 80 MG Sacubitril/ Valsartan 1 tab BID PO 07/13/25 22:00 8/15/25 10:18 1 TAB Spironolactone 25 mg DAILY PO 07/14/25 10:00 07/16/25 10:18 25 MG Diagnostic Test (Pha) 1 strip ACHS 07/13/25 17:00 07/16/25 06:14 1 STRIP Insulin Human Regular HS SC 07/13/25 22:00 07/15/25 22:19 3 UNITS Insulin Human Regular AC SC 07/13/25 17:00 07/16/25 06:14 3 UNITS Dextrose 50 ml UD PRN IV 07/13/25 15:45 Empaglifozin 10 mg DAILY PO 07/15/25 10:00 07/16/25 10:17 10 MG Nicotine 1 patch DAILY TD 07/15/25 10:00 Carvedilol 3.125 mg Q12HR PO 07/15/25 22:00 07/16/25 10:17 3.125 MG Sildenafil Citrate 20 mg TID@08,14,20 PO 07/16/25 08:00 07/16/25 08:52 20 MG objective GENERAL: Alert and oriented x 3. No acute distress. Obesity. EYES: PERRL, EOMI. Anicteric. HENT: Moist mucous membranes. LUNGS: Clear to auscultation bilaterally. CARDIOVASCULAR: Regular rate and rhythm. ABDOMEN: Soft, non-tender and non-distended. EXTREMITIES: 3+ pitting edema. NEUROLOGIC: No focal neurological deficits. SKIN: Warm, dry. laboratory and microbiology Laboratory Tests 07/16/25 04:52 07/15/25 04:59 Test 07/16/25 04:52 Range/Units Serum Glucose 160 H 74-106 mg/dL Problem List NSTEMI. Acute on chronic decompensated HFrEF, NYHA class III. Hypertension. Dyslipidemia. Type 2 diabetes mellitus. Polysubstance abuse. Obesity. Medical noncompliance. Dietary indiscretions. Assessment/Plan Continued all current supportive medical care. Coreg. Entresto. Diuretics with Lasix. IV antibiotics as ordered. Tylenol for pain management. Additional plan as per the hospital course. Plan discussed with: Patient WILLIAM FONTENOT MD Jul 16, 2025 13:06
== END 2025-07-16 12:15 | disposition home or self-care (01) | DRG 194 ==
LOC: ER 07:34 → OVERFLOW 12:43 → TELE-CENTR 07-14 18:25
PROVIDERS: ADMIT Internal Medicine; ATTEND Emergency Medicine
PROC: 5A09357 Assistance with Respiratory Ventilation, Less than 24 Consecutive Hours, Continuous Positive Airway Pressure (ICD-10-PCS; principal; 2025-07-16)
DX: I11.0 Hypertensive heart disease with heart failure (principal); I21.A1 Myocardial infarction type 2; I31.39 Other pericardial effusion (noninflammatory); I27.20 Pulmonary hypertension, unspecified; R65.10 Systemic inflammatory response syndrome (SIRS) of non-infectious origin without acute organ dysfunction; I50.23 Acute on chronic systolic (congestive) heart failure; E66.9 Obesity, unspecified; Z68.35 Body mass index [BMI] 35.0-35.9, adult; E11.9 Type 2 diabetes mellitus without complications; F19.10 Other psychoactive substance abuse, uncomplicated; J45.909 Unspecified asthma, uncomplicated; F10.20 Alcohol dependence, uncomplicated; N39.0 Urinary tract infection, site not specified; R09.89 Other specified symptoms and signs involving the circulatory and respiratory systems; E78.5 Hyperlipidemia, unspecified; K80.20 Calculus of gallbladder without cholecystitis without obstruction; F17.210 Nicotine dependence, cigarettes, uncomplicated; E87.6 Hypokalemia; E80.6 Other disorders of bilirubin metabolism; I25.5 Ischemic cardiomyopathy; Z91.148 Patient's other noncompliance with medication regimen for other reason; Z88.5 Allergy status to narcotic agent; Z83.3 Family history of diabetes mellitus
CPT/HCPCS: 36415; 71045; 80048; 80053; 80061; 80307; 81001; 82962; 83036; 83735; 83880; 84443; 84484; 85025; 85610; 85730; 93005; 93306; 94660; 96365; 96367; 96375; 99291; G0378; J1815